=== PATIENT | male | born 1940 | race Caucasian/White ===

== ENCOUNTER 2023-04-21 07:45 | Observation (INO) ==
--- OUTSIDE RECORDS SUMMARY | 2023-04-21 07:52 | External Medical Summary | Continuity of Care Document ---
Author Name Unknown Organization [facility] Address [address] [place] [address] Phone [phone] Social History Type Date Description Comments Sex Unknown Results Test Acquired Date Facility Test Result H/L Range [place] BMP 04/14/2023 [facility] [address] [place], [place] [id number] [phone] Glucose 194 mg/dL High 70-110 1 BUN 34 mg/dL High 6-25 Creatinine 2.3 mg/dL High 0.7-1.3 Sodium 143 mEq/L 135-145 Potassium 4.8 mEq/L 3.5-5.0 Chloride 111 mEq/L High 95-107 Co-2 24 mEq/L 24-31 Calcium 8.3 mg/dL Low 8.5-10.6 GFR 29 ML/MIN/1.73SQM Low >60 1 Erik Pyle [facility] [address] [place] [address] [facility] [phone] Phone Procedures Date Code Description Status 04/14/2023 84062 Venipuncture Routine Complet ed Medical Devices Description No Information Available Encounters Description No Information Available Assessments Date Code Description Provider 04/14/2023 Z01.818 Encounter for other preproce dural examination Lab - [place] Plan of Treatment No Information Available Functional Status Description No Information Available Mental Status Description No Information Available Referrals Description No Information Available
--- OUTSIDE RECORDS SUMMARY | 2023-04-21 07:52 | External Medical Summary | Summary of Care ---
Author Name Unknown Organization [facility] Address [address] [place] [address] Phone [phone] Care Team Providers Care Supervisor Asbestos Removal Name Role Phone Brian England DO, David Vincent Primary Care Provid er Reason for Visit * Reason Comments Acute Pt is here for c/o b ilat ear songs playing in ear and L eye problems x couple wks Encounter Details Date Type Department Care Team (Late st Contact Info) Description 04/18/2023 12:20 PM EST Office Visit [facility] [address] [place] [address] [place] CRNP [address] [place] [id number] Abnormal mini-mental status exam*; Risk and functional assessment Allergies Active Allergy Reactions Criticality Noted Date Comments Hydromorphone Hcl Nausea/vomiting,Othe r (Please comment) 06/06/2015 Excessive sweating Ibuprofen 09/07/2007 Nausea, headache Lisinopril 07/05/2005 COUGH documented as of this encounter (statuses as of 04/18/2023) Medications Medication Sig Dispensed Refills Start Date End Date Status ONETOUCH DELICA LANCETS 33G MISC To use with glucometer up to four times a day DX: E11.9 100 Each 11 9 Active Creon 6000 UNIT Oral Capsule Delayed Release Particles (Pancrelipase ([id number]))Ind ications:Pancreatit is, chronic (HCC) TAKE ONE CAPSULE BY MOUTH THREE TIMES DAILY WITH MEALS 270 Cap 1 1 Active OneTouch Verio In Vitro Strip (Glucose Blood)Indications:T ype 2 diabetes mellitus with hemoglobin A1c goal of less than 8.0% (HCC) Use to check blood sugar three times daily as needed. E11.9 100 Strip 3 1 Active ReliOn Pen Aiken 31G X 6 MM (Insulin Pen Needle) Use with insulin pens three times daily. (Patient gets insulin pens through patient assistance program but is not supplied with pen needles. Please dispense) 100 Each 3 1 Active BD Pen Needle Keke 2nd Gen 32G X 4 MM 0 1 Active Triamcinolone Acetonide 0.1 % External Cream (Aristocort) Apply topically to affected area 2 times a day . To affected area. 60 g 5 2 Active Basaglar KwikPen 100 UNIT/ML Subcutaneous Solution Pen-injector (Insulin Glargine) INJECT 4 UNITS SUBCUTANEOUSLY ONCE DAILY AT NIGHT 15 mL 1 2 Active Multi Vitamin Daily Oral Tablet Take by mouth . 0 Active Pravastatin Sodium 40 MG Oral Tablet (Pravachol) TAKE 1 TABLET BY MOUTH DAILY WITH EVENING MEAL OR AT BEDTIME 90 Tablet 3 3 Active Dexcom G4 [place] Rcv/Share Device Use as directed. 0 Ac tive Losartan Potassium 25 MG Oral Tablet (Cozaar) TAKE 1 TABLET BY MOUTH EVERY DAY 90 Tablet 1 3 Active Allopurinol 100 MG Oral Tablet (Zyloprim)Indicatio ns:Idiopathic chronic gout without tophus, unspecified site TAKE 2 TABLETS BY MOUTH IN THE MORNING 180 Tablet 1 3 Active Finasteride 5 MG Oral Tablet (Proscar)Indication s:BPH with obstruction/lower urinary tract symptoms TAKE 1 TABLET BY MOUTH EVERY DAY IN THE MORNING 90 Tablet 1 3 Active Sodium Bicarbonate 650 MG Oral Tablet TAKE 1 TABLET BY MOUTH EVERY DAY IN THE MORNING AND AT BEDTIME 180 Tablet 3 3 Active Gabapentin 100 MG Oral Capsule (Neurontin)Indicati ons:Diabetic polyneuropathy associated with type 2 diabetes mellitus (HCC) Take 1 Capsule by mouth 3 times a day as needed for Pain (leg pain). 270 Capsule 3 3 Active NovoLOG FlexPen 100 UNIT/ML Subcutaneous Solution Pen-injector (insulin aspart)Indications: Type 2 diabetes mellitus with hemoglobin A1c goal of less than 8.0% (HCC) Inject 15 units with breakfast, 5 units with evening meal 1 Each 5 3 Active Famotidine 10 MG Oral Tablet (Pepcid)Indications :Heartburn Take 1 Tablet by mouth every evening. For heartburn 30 Tablet 0 3 Active Levothyroxine Sodium 50 MCG Oral Tablet (Levoxyl)Indication s:Hypothyroidism, unspecified type (at least 30 min prior to breakfast or other meds) 90 Tablet 3 3 Active Benzonatate 100 MG Oral CapsuleIndications: Acute cough Take 1 Capsule by mouth 3 times a day as needed for Cough. 30 Capsule 1 3 Active Ventolin HFA 108 (90 Base) MCG/ACT Inhalation Aerosol SolutionIndications :Wheezing Inhale 2 Puffs by mouth every 4 hours as needed for Shortness of Breath or Wheezing. 18 g 0 3 Active Clopidogrel Bisulfate 75 MG Oral Tablet (pLAVix) TAKE 1 TABLET BY MOUTH EVERY DAY IN THE MORNING 30 Tablet 3 3 Active Multivitamin Adult Oral Tablet Chewable 1 Tablet. 0 3 04/18/20 23 Discontinu ed(Patient preference /discontin uation) documented as of this encounter (statuses as of 04/18/2023) Active Problems Problem Noted Date Diagnosed Date Bilateral pleural effusion 04/08/2023 Syncope 02/06/2023 Hypoglycemia 02/04/2023 TIA (transient ischemic attack) 08/29/2022 Diabetic retinopathy of both eyes associated with type 2 diabetes mellitus 01/17/2021 Exocrine pancreatic insufficiency 11/15/2020 Diabetic polyneuropathy asso ciated with type 2 diabetes mellitus 08/11/2020 Type 2 diabetes mellitus wit h chronic kidney disease and hypertension 02/07/2020 Vitamin D deficiency 02/07/2020 Hypothyroidism 02/07/2020 Idiopathic chronic gout without tophus 0 Kidney disease, chronic, stage III (GFR 30-59 ml /min) 06/15/2019 Overview: Per CKD protocol History of TIA (transient ischemic attack) 06/03 Thrombocytopenia 03/23/2018 Type 2 diabetes mellitus wit h stage 3 chronic kidney disease, with long-term current use of insulin 03/16/2018 History of renal stone 11/18/2017 Overview: RIGHT URETERAL COLIC SEPTEMBER 2017; LEFT URETERAL COLIC IN YEARS PAST--STONES PASSED SPONTANEOUSLY--INITIAL STONE COLLECTED, COMPOSITION, ? Dyslipidemia, goal LDL below 100 03/03/2017 HTN, goal below 130/80 04/24/2015 Type 2 diabetes mellitus wit h hemoglobin A1c goal of less than 8.0% 09/06/2014 Overview: ICD-10 update of inactive term Anemia of chronic disease 01/06/2014 Gout 02/16/2009 Overview: ICD-9 Code Update Other chronic pancreatitis 10/25/2008 Overview: Followed by Dr. Thompson ADVANCE DIRECTIVE INFORMATION 12/21/2004 Overview: No, Advance Directive brochure given to patient. documented as of this encounter (statuses as of 04/18/2023) Resolved Problems Problem Noted Date Diagnosed Date Resolved Date Diabetic retinopathy of both eyes 01/15/2019 06/22/2019 Benign hypertension with chr onic kidney disease, stage III 03/23/2018 02/02/2019 DM type 2 causing eye disease 11/23/2015 07/07/2017 HTN, goal below 150/90 01/10/201504/24 KIDNEY DISEASE, CHRONIC, STA GE III (GFR 30-59 ML/MIN) 09/23/2011 06/18/2018 Overview: Per CKD protocol #1 Diabetic polyneuropathy 09/12/2010 03/0 09/2017 Overview: ICD-10 update of inactive term Chronic pancreatitis 04/30/2010 010 FATTY INFILTRATION LIVER 04/30/2010 Headache 03/20/2010 10/30/2016 Overview: ICD-10 update of inactive term DM type 2 causing neurological disease 07/13/2009 07/07/2017 HTN, goal below 130/80 03/28/200901/06 Overview: Modified per HTN protocol #16. DM TYPE 2 CAUSING RENAL DZ 03/02/2009 0 07/07/2017 Overview: Per Diabetes Taxonomy. Added per DM w/ renal complications protocol #4 Type 2 diabetes mellitus wit h hemoglobin A1c goal of less than 7.0% 03/02/2009 09/06/2014 Overview: Per Diabetes Taxonomy. ICD-10 update of inactive term Special screening for malign ant neoplasms, colon 10/14/2008 10/30/2016 Overview: Colonoscopy done on 06/10/[address] Thompson. Reported grade 1 internal hemorrhoids with recommended f/u in 10 yrs. DIAB RENAL MANIF ADULT 11/25/200703/02 Overview: Per Diabetes Taxonomy. Added per DM w/ renal complications protocol #4 Dermatitis 03/05/2005 03/20/2018 Presbyopia 08/10/2002 10/30/2016 Type 2 diabetes mellitus wit h hemoglobin A1c goal of less than 7.0% 03/02/2009 Overview: Per Diabetes Taxonomy. 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 documented as of this encounter (statuses as of 04/18/2023) Immunizations Name Administration Dates Next Due COVID-19, mRNA, LNP-s, PF, B ooster, 100mcg/0.5mg (Moderna) 05/16/2021 Pneumococcal Conjugate Vacc, 13 Valent (Prevnar) 05/22/2015 Seasonal Influenza, PF, 6 M & above, IM , (FluLaval or Fluzone) 02/07/2020,02/02/2019,03/16/2018,2016 Seasonal Influenza, Quadriva lent Hd (Fluzone Hd) 02/12/2023,02/12/2022,02/09/2021 Seasonal Influenza, Quadriva lent, No Preserve, IM 03/02/2016 Seasonal Influenza, Split, I IV3, With Preserve, Inj 01/10/2015,02/05/2014,01/16/2013,2011,01/25/2011,01/23/2010,02/07/2009,1 ,02/12/2007,03/03/2006 TDAP (age 10 and older)(Boostrix) 04/02/2017 Zoster Vaccine Recombinant (Shingrix) 10/29/2019 ,07/02/2019 documented as of this encounter Social History Tobacco Use Types Packs/Day Years Used Date Smoking Tobacco: Former Cigarettes 0.5 3 Q uit: 11/28/1964 Smokeless Tobacco: Former Tobacco Cessation:Counseling Given: Not Answered Alcohol Use Standard Drinks/Week Comments No 0 (1 standard drink = 0.6 oz pur e alcohol) PHQ-2 Answer Date Recorded PHQ Adult Total Score 0 10/01/2022 Hunger Vital Sign Answer Date Recorded Within the past 12 months, y ou worried that your food would run out before you got the money to buy more. Never true 11/05/19 23 Within the past 12 months, t he food you bought just didn't last and you didn't have money to get more. Never true 11/04/2022 Sex and Gender Information Value Date Recorded Sex Assigned at Male 08/27/2018 9:53 AM EDT Gender Identity Male 08/27/2018 9:53 AM EDT Sexual Orientation Straight 08/27/2018 9: 53 AM EDT Job Start Date Occupation Industry Not on file Not on file Not on file documented as of this encounter Last Filed Vital Signs Vital Sign Reading Time Taken Comments Blood Pressure 128/62 04/18/2023 12:25 PM EST Pulse 81 04/18/2023 12:25 PM EST Temperature 36.2 C (97.1 F) 04/18/2023 12:[address] Respiratory Rate 18 04/18/2023 12:25 PM EST Oxygen Saturation 98% 04/18/2023 12:25 PM EST Inhaled Oxygen Concentration - - Weight 71 kg (156 lb 8 oz) 04/18/2023 12:[address] Height - - Body Mass Index 22.46 04/10/2023 11:01 AM EST documented in this encounter Functional Status Functional Status Response Date of Assess ment Are you deaf or do you have serious difficulty h earing? Yes 08/29/2022 Are you blind or do you have serious difficulty seeing, even when wearing glasses? No 08/29/2022 Do you have serious difficul ty walking or climbing stairs? (5 years old or older) Yes 08/29/2022 Do you have difficulty dress ing or bathing? (5 years old or older) Yes 08/29/2022 Because of a physical, menta l, or emotional condition, do you have difficulty doing errands alone such as visiting a doctor s office or shopping? (15 years old or older) No 08/30/19 Cognitive Status Response Date of Assessm ent Because of a physical, menta l, or emotional condition, do you have serious difficulty concentrating, remembering, or making decisions? (5 years old or older) No 08/29/2022 documented as of this encounter Patient Instructions * Patient Instructions* Hector Mayo LPN - 04/18/2023 12:23 PM EST Patient Instructions - Fall Prevention (This education is for all patients over 65 regardless of symptoms) Remember to take your current medications as prescribed. In order to prevent falls, you are encouraged to: Exercise Utilize assistive/adaptive devices Avoid multifocal lenses when walking Avoid hazards in home Maintain a regular toileting schedule Any questions please contact our office. Preventing Falls in the Home (This education is for all patients over 65 regardless of symptoms) As you get older, falls are more likely. Thats because your reaction time slows. Your muscles and joints may also get stiffer, making them less flexible. Illness, medications, and vision changes can also affect your balance. A fall could leave you unable to live on your own. To make your home safer, follow these tips: Floors Put nonskid pads under area rugs Remove throw rugs Replace worn floor coverings Tack carpets firmly to each step on carpeted stairs. Put nonskid strips on the edges of uncarpeted stairs Keep floors and stairs free of clutter and cords Arrange furniture so there are clear pathways Clean up any spills right away Bathrooms Install grab bars in the tub or shower Apply nonskid strips or put a nonskid rubber mat in the tub or shower Sit on a bath chair to bathe Use bathmats with nonskid backing Lighting Keep a flashlight in each room Put a nightlight along the pathway between the bedroom and the bathroom [employer] Patient Education Copyright 2008 - 2010 [employer] except where otherwise noted Preventing Falls: Exercises to Improve Balance, Flexibility, Strength, and Staying Power (This education is for all patients over 65 regardless of symptoms) Certain types of exercises may help make you less likely to fall. Try the ones below. Or do other exercises that your healthcare provider suggests. Depending on your health, you may need to start slowly. Dont let that stop you. Even small amounts of exercise can help you. Be sure to talk to yourhealthcare provider before starting any exercise program. Improve Balance Many types of exercise can help improve balance. Cl chi and yoga are good examples. Heres another one to try. You can do it anytime and almost anywhere. Stand next to a counter or solid support. Push yourself up onto your tiptoes. Hold for 5 seconds. If you start to lose your balance, hold on to the counter. Rest and repeat 5 times. Work up to holding for 20 to 30 seconds, if you can. Increase Flexibility Being more flexible makes it easier for you to move around safely. Try exercises like the seated hamstring stretch. Sit in a chair and put one foot on a stool. Straighten your leg and reach with both hands down either side of your leg. Reach as far down your leg as you can. Hold for about 20 seconds. Go back to the starting position. Then repeat 5 times. Switch legs. Build Strength Resistance exercises help build strength. You can do them without equipment. Or you can use weights, elastic bands, or special machines. One such exercise is called the biceps curl. You can hold a 1 pound weight or even a can of soup. Do this exercise at least 3 times a week. Strive for everyday. Sit up straight in a chair. Keep your elbow close to your body and your wrist straight. Bend your arm, moving your hand up to your shoulder. Then slowly lower your arm. Repeat 5 times. Switch to the other arm. Build Your Staying Power Aerobic exercises make your heart and lungs stronger so you can keep moving longer. Walking and swimming are two of the best types of exercises you can do. Using a stationary bike is great, too. Find an aerobic exercise that you enjoy. Start slowly and build up. Even 5 minutes is helpful. Aimfor a goal of 30 minutes, at least 3 times a week. You dont have to do 30 minutes in one session. Break it up and walk a little throughout the day. More Helpful Tips Start easy. Slowly work up to doing more. Talk with your healthcare provider about the best exercises for you. Call senior centers or health clubs about exercise programs. If needed, have a family member watch you walk every so often to check your stability. Exercise with a friend. Choose an activity you both enjoy. Try exercises that you can do anytime, anywhere. Here are two examples. Have someone with you when you first try these: Practice walking by placing one foot right in front of the other. Stand up and sit down 10 times. Repeat this throughout the day. [employer] Patient Education Copyright 2009 - 2010 [employer] except where otherwise noted. Preventing Falls: Moving Safely Using a Cane or Walker (This education is for all patients over 65 regardless of symptoms) Keep the cane away from your feet so you dont trip. A walking aid, such as a cane or walker, can help you stay more independent and avoid falls. Remember to keep your walking aid within easy reach when youre in a chair or in bed. And learn how to use it safely so you dont injure yourself. Using a Cane If you have a stronger side, hold the cane on that side. Get your balance. Move the cane and your weaker leg forward. Support your weight on both the cane and your weaker side. Step with your stronger leg. Start again from step 1. If youre using a folding walker, be sure you know how to lock it open. Check that its locked open before each use. Using a Walker Roll the walker (or lift it, if youre using one without wheels) forward about 12 inches. Step forward with your weaker leg first. Use the walker to help keep your balance. Bring your other foot forward to the center of the walker. Start again from step 1. Helpful Tips Check with your healthcare provider about the right walking aid to use. Ask about a walker with a seat attached. Check the tips of your cane or walker to make sure they have nonskid covers. Move slowly from room to room. Dont lua. Sit down to get dressed. Use a bhavna pack or backpack to keep your hands free. Get help for jobs that mean climbing, even on a stepstool. [employer] Patient Education Copyright 2008 - 2010 [employer] except where otherwise noted. Treating Urinary Incontinence in Men (This education is for all patients over 65 regardless of symptoms) You can't always control the release of urine. You may leak urine. Or you may not be able to hold your urine until you can get to a bathroom. This is called urinary incontinence. The problem can be managed. Talk to your doctor about your treatment options. Taking Medications Prescription medications may help you. They may: Help the sphincter to work better. (This is the muscle that closes to keep urine from leaking out of the bladder.) Help stop the bladder from chelsie too often to push urine out. Help the bladder muscles contract with more force. Help relax the sphincter muscle and allow urine to flow more freely. Making Changes to Your Routine Certain changes in your daily routine may help. These include: Avoiding caffeine and alcohol. Using timed voiding. This is following a schedule for drinking fluids and urinating. Doing Kegel exercises daily. These exercises involve tightening the muscles in your sphincter and around your bladder to help strengthen them. Your doctor can explain how to do them. Using a Catheter A catheter is a narrow tube that is inserted through the urethra into the bladder. It drains urine.A condom catheter covers the penis. It channels urine into a collection bag. It is worn most of thetime. Intermittent catheterization means inserting a catheter to drain the bladder, then removing it. This is done on a regular schedule. Having Surgery If other options don't work, surgery may be recommended. If surgery is an option, your healthcare provider can discuss it with you and explain its risks and benefits. Healing After Prostate Surgery Surgery on the prostate gland can cause incontinence. Most often, the incontinence is only for a short time. It clears up when healing is complete. Very rarely, prostate surgery can result in permanent incontinence. documented in this encounter Progress Notes * [place] CRNP - 04/18/2023 12:33 PM EST Images from the original note were not included. History of Present Illness Chief Complaint Patient presents with Acute Pt is here for c/o bilat ear songs playing in ear and L eye problems x couple wks Brief Clinical History Mr. Lee is an 82 year old man last seen in Family Medicine today (04-18-23). He has h/o chronic diabetic complication, chronic pancreatitis, CKD stage 3, Diabetic polyneuropathy associated with type 2 diabetes mellitus (HCC), Diabetic retinopathy of both eyes associated with type 2 diabetes mellitus (HCC), hematological disorder, Kidney disease, chronic, stage III (GFR 30-59 ml/min) (HCC), Other chronic pancreatitis (HCC), Thrombocytopenia (HCC), and Type 2 diabetes mellitus with stage 3 chronic kidney disease, with long-term current use of insulin (HCC). Patient presents today with his and son. Pt states about 2 weeks ago started hearing someone singing. States heard the words and the music. This lasted for about 4 days. It was only in left ear. No radio was playing. Per family, no other audio was playing. Pt was hearing constantly. States it quit this morning. Pt is not hearing it now. The story changed somewhat while interviewing the patient. Difficult to assess exactly how long thesymptoms were ongoing. Patient does state does not hear anything at this time. Patient does appear somewhat confused upon examination. Occasionally laughs at random times. Is disoriented to time. Oriented to person and place. No hx of mental health disorders. No ringing our buzzing in ears. No ear pain. No headaches or dizziness. There was concern for potential new onset of dementia. Mini-mental state examination done with patient. See below. Reviewed last labs Latest Reference Range & Units 04/10/23 12:47 04/14/23 17:17 Sodium 135 - 146 mmol/L 142 SODIUM-OUTSIDE LAB 135 - 145 MEQ/L 143 Potassium 3.5 - 5.1 mmol/L 4.8 POTASSIUM-OUTSIDE LAB 3.5 - 5.0 MEQ/L 4.8 Chloride 98 - 107 mmol/L 110 (H) CHLORIDE-OUTSIDE LAB 95 - 107 MEQ/L 111 (H) CO2 22 - 32 mmol/L 24 BUN 6 - 20 mg/dL 29 (H) BUN-OUTSIDE LAB 6 - 25 MG/DL 34 (H) Creatinine 0.6 - 1.2 mg/dL 2.1 (H) CREATININE-OUTSIDE LAB 0.7 - 1.3 MG/DL 2.3 (H) Estimated Glomerular Filtration Rate >=60 mL/min 31 (L) EGFR-OUTSIDE LAB >60 ML/MIN/1.73 SQM 29 (L) Anion Gap 7 - 15 mmol/L 8 Glucose 70 - 120 mg/dL 126 (H) GLUCOSE-OUTSIDE LAB 70 - 110 MG/DL 194 (H) Calcium 8.4 - 10.2 mg/dL 8.8 CALCIUM-OUTSIDE LAB 8.5 - 10.6 MG/DL 8.3 (L) CBC Rpt ! WBC 4.00 - 10.80 K/uL 8.29 HGB 14.0 - 16.8 g/dL 12.4 (L) HCT 40.0 - 48.4 % 35.4 (L) MCV 82.0 - 99.5 fL 101.1 PLT 140 - 400 K/uL 155 Review of Systems Constitutional: Negative. HENT: Negative. Eyes: Negative. Respiratory: Negative. Cardiovascular: Negative. Gastrointestinal: Negative. Endocrine: Negative. Genitourinary: Negative. Musculoskeletal: Negative. Skin: Negative. Neurological: Negative. Psychiatric/Behavioral: Positive for confusion and decreased concentration. Auditory hallucination Physical Exam BP 128/62 | Pulse 81 | Temp 36.2 C (97.1 F) (Tympanic) | Resp 18 | Wt 71 kg (156 lb 8 oz) | SpO2 98% | BMI 22.46 kg/m | BSA 1.87 m Physical Exam Vitals reviewed. Constitutional: Appearance: Normal appearance. He is normal weight. HENT: Head: Normocephalic. Right Ear: Tympanic membrane, ear canal and external ear normal. Left Ear: Tympanic membrane, ear canal and external ear normal. Nose: Nose normal. Mouth/Throat: Pharynx: Oropharynx is clear. Eyes: Extraocular Movements: Extraocular movements intact. Conjunctiva/sclera: Conjunctivae normal. Pupils: Pupils are equal, round, and reactive to light. Cardiovascular: Rate and Rhythm: Normal rate and regular rhythm. Pulses: Normal pulses. Heart sounds: Normal heart sounds. Pulmonary: Effort: Pulmonary effort is normal. Breath sounds: Normal breath sounds. Abdominal: General: Bowel sounds are normal. Palpations: Abdomen is soft. Musculoskeletal: General: Normal range of motion. Skin: General: Skin is warm and dry. Capillary Refill: Capillary refill takes less than 2 seconds. Neurological: Mental Status: He is alert. Mental status is at baseline. He is disoriented. Psychiatric: Mood and Affect: Mood normal. Cognition and Memory: Cognition is impaired. Assessment and Plan (F99) Abnormal mini-mental status exam (primary encounter diagnosis) Plan: Did reach out to ask a doc for more information on next steps. The patient appeared healthy upon physical examination. Do not feel there is any need to do any further lab work or imaging at this time. Did step out of room and talk with family privately about his mini-mental state examination. Discussed with them that this could potentially be early onset dementia. However assured the patient's family that it is uncertain at this time. I also discussed with the patient about the possibility of early onset dementia. However the patient seemed to have difficulty comprehending what I was saying. (Z13.9) Risk and functional assessment Plan: Information given by nurse. Wrap-Up Pt is to follow up with his appointments in the future as scheduled. Pt or family members are to notify us of any concerning or worsening symptoms. Pt and family members expresses understanding and satisfaction with plan. Time: I spent a total of 40-54 minutes (exact time 45 mins) on the date of service in preparation, delivery, and documentation of the care provided to Kd Lee excluding any time spent in the performance of separately billed services. AIMEE Rainey documented in this encounter Nursing Notes * Hector Mayo LPN - 04/18/2023 12:22 PM EST Chief Complaint Patient presents with Acute Pt is here for c/o bilat ear songs playing in ear and L eye problems x couple wks documented in this encounter Plan of Treatment Upcoming Encounters Date Type Department Care Team (Late st Contact Info) Description 07/17/2023 2:00 PM EDT Office Visit Cardiology [place] [address] [address] Radha London CRNP [address] [place] [phone] 09/09/2023 3:00 PM EDT Office Visit Nephrology, [address] [address] Kaushik Landaverde MD [address] [place] [address] 10/03/2023 3:20 PM EDT [facility] Visit [facility] [address] [place] [address] Farhat Torres Jr. [address] [place] [address] 11/19/2023 1:30 PM EDT Office Visit Cardiology [address] [address] Radha London CRNP [address] [place] [phone] 11/19/2023 3:00 PM EDT Office Visit Pharmacy, [address] [place] [address] Pharmacist2, [address] [address] 03/02/2024 2:00 PM EDT Appointment Radiology, [address] [address] 03/08/2024 1:40 PM EST Telemedicine Pulmonary Medicine [facility] [address] [place] [phone] Nakul Michelle MD [address] [place] [address] Health Maintenance Due Date Last Done Comments Hepatitis B (1 of 3 - Risk 3-dose series) 2000 HOME BP CUFF VALIDATION YEARLY 07/16/2018 07/16/2017 COVID-19 Vaccine ( - season) 2023 05/16/2021 Albumin/Creatinine Ratio 03/21/2023 022, 09/18/2021, 02/02/2019, Additional history exists Diabetic Foot Exam 03/26/2023 03/26/2022, 1 , 02/07/2020, Additional history exists HbA1c 07/23/2023 01/22/2023, 08/0 08/2022, 09/20/2022, Additional history exists CKD PHOS USE SMARTSET 31386 08/31/2023/2 12/2022, 08/29/2022, 09/18/2021, Additional history exists Depression Screening 10/02/2023 10/01/2022 GFR 10/14/2023 04/14/2023, 12/0 11/2022, 02/04/2023, Additional history exists Diabetic Eye Exam 12/10/2023 12/09/2022, , 11/21/2022, Additional history exists TSH 01/23/2024 01/22/2023, 08/0 08/2022, 09/20/2022, Additional history exists CKD HGB USE SMARTSET 15906 04/10/202404/10, 02/04/2023, 01/22/2023, Additional history exists DTaP,Tdap,and Td Vaccines (2 - Td or Tdap) 04/02/2027 04/02/2017, 04/12/1998 Pneumococcal Vaccine: 65+ Years Completed 05/22/2015, 05/14/2005 Zoster Vaccines Completed 10/29/2019, 07/02/2019 Influenza Vaccine (FLU shot) Completed 03/2023, 02/12/2022, 02/09/2021, Additional history exists GARDASIL-HPV IMMUNIZATION SERIES Aged Out No longer eligible based on patient's age to complete this topic MENINGOCOCCAL (MENACTRA/MENVEO) Aged Out No longer eligible based on patient's age to complete this topic documented as of this encounter Medical Devices Not on filedocumented as of this encounter Visit Diagnoses Diagnosis Abnormal mini-mental status exam- Primary Altered mental status Risk and functional assessment Screening for unspecified condition documented in this encounter Advance Directives Latest Code Status on File Code Status Date Activated Date Inactivated Comments Full Code 08/29/2022 9:50 PM 08/30/2022 8:44 PM This order reflects the patients wishes and were consensually agreed upon. Question Answer Comments Discussion of Advance Directives occurred with: Patient Care Teams Supervisor Asbestos Removal Relationship Specialty Start Date End Date Farhat Torres Jr., DO [address] [place] [address] PCP - General Family Medicine 04/24/21 documented as of this encounter"
--- OUTSIDE RECORDS SUMMARY | 2023-04-21 07:52 | External Medical Summary | Continuity of Care Document ---
Author Name Unknown Organization [facility] Address [address] [place] [address] Phone [phone] Social History Type Date Description Comments Sex Unknown Results Test Acquired Date Facility Test Result H/L Range N ote BMP 04/14/2023 [facility] [address] [place], [place] [id number] [phone] Glucose 194 mg/dL High 70-110 1 BUN 34 mg/dL High 6-25 Creatinine 2.3 mg/dL High 0.7-1.3 Sodium 143 mEq/L 135-145 Potassium 4.8 mEq/L 3.5-5.0 Chloride 111 mEq/L High 95-107 Co-2 24 mEq/L 24-31 Calcium 8.3 mg/dL Low 8.5-10.6 GFR 29 ML/MIN/1.73SQM Low >60 1 Erik Pyle [facility] [address] [place] [address] [facility] [address] Phone Procedures Date Code Description Status 04/14/2023 65436 Venipuncture Routine Complet ed Medical Devices Description No Information Available Encounters Description No Information Available Assessments Date Code Description Provider 04/14/2023 Z01.818 Encounter for other preproce dural examination Flakito Saleem, DO 04/14/2023 Z01.818 Encounter for other preproce dural examination Lab - [place] Plan of Treatment No Information Available Functional Status Description No Information Available Mental Status Description No Information Available Referrals Description No Information Available
--- OUTSIDE RECORDS SUMMARY | 2023-04-21 07:52 | External Medical Summary | Summary of Care ---
Author Name Unknown Organization [facility] Address [address] [place] [address] Phone [phone] Care Team Providers Care Instructional Supervisor Name Role Phone Brian England DO, David Vincent Primary Care Provid er Reason for Referral * Evaluate & Treat - Unlimited Visits (Within 10 days (routine)) - Authorized Specialty Diagnoses / Procedures Referred By Shine do Referred To Contact Neurology Diagnoses Abnormal mini-mental status exam Jarred Zaragoza CRNP [address] [place] [address] Referral ID Status Reason Start Date Expiration Date Visits Requested Visits Authorized [id number] Authorized Specialty Services Required [phone] Question Answer Referral Priority Within 10 days (routine) Where should this appointment be scheduled? [facility] This patient already has care established with Neurology. Do not place this order. Please use Ask A Doc to expedite care. Acknowledge CAD NEUROLOGY REFERRAL QUESTIONS Memory/Cognition Comments Neurophthalmology as well. Reason for Visit * Reason Comments Acute Pt is here for c/o b ilat ear songs playing in ear and L eye problems x couple wks Encounter Details Date Type Department Care Team (Late st Contact Info) Description 04/18/2023 12:20 PM EST Office Visit [facility] [address] [place] [address] Jarred Zaragoza CRNP [address] [place] [address] Abnormal mini-mental status exam*; Risk and [...] UNIT Oral Capsule Delayed Release Particles (Pancrelipase (Swn-Fyfo-Vzlr))Ind ications:Pancreatit is, chronic (HCC) TAKE ONE CAPSULE BY MOUTH THREE TIMES DAILY WITH MEALS 270 Cap 1 1 Active Long TailTouch Verio In Vitro Strip (Glucose Blood)Indications:T ype 2 diabetes mellitus with hemoglobin A1c goal of less than 8.0% (HCC) Use to check blood sugar three times daily as needed. E11.9 100 Strip 3 1 Active ReliOn Pen [place] 31G X 6 MM (Insulin Pen Needle) [...] 90 Tablet 3 3 Active Dexcom G4 [place] Rcv/Share Device Use as directed. 0 Ac [...] Per CKD protocol #1 Diabetic polyneuropathy 09/12/2010 0309/2017 Overview: ICD-10 update of inactive term Chronic [...] Pneumococcal Conjugate Vacc, 13 Valent (Prevnar) 05/22/2015 Pneumococcal Polysaccharide PPV23 (Pneumovax) 05/14/2005 Seasonal Influenza, PF, 6 M & above, IM , (FluLaval or Fluzone) 02/07/2020,02/02/2019,03/16/2018,03/03 Seasonal Influenza, Quadriva lent Hd (Fluzone Hd) 02/12/2023,02/12/2022,02/09/2021 Seasonal Influenza, Quadriva lent, No Preserve, IM 03/02/2016 Seasonal Influenza, Split, I IV3, With Preserve, Inj 01/10/2015,02/05/2014,01/16/2013,01/29,01/25/2011,01/23/2010,02/07/2009 ,02/25/2008,02/12/2007,03/03/2006,04/05,03/16/2003,03/25/2002, 0,02/07/1999,03/01/1998,02/24/1995 TD - Tetanus/Diptheria (ADULT) 04/12/1998 TDAP (age 10 and older)(Boostrix) 04/02/2017 Zoster [...] money to buy more. Never true 11/05/19 Within the past 12 months, t he [...] encounter Patient Instructions * Patient Instructions* Hector MayoRACHAEL - 04/18/2023 12:23 PM EST Patient Instructions [...] that mean climbing, even on a stepstool. Delta Patient Education Copyright 2008 - 2010 [...] documented in this encounter Progress Notes * Jarred Zaragoza CRNP - 04/18/2023 12:33 PM EST [...] x couple wks documented in this encounter Miscellaneous Notes * Addendum Note - Jarred Zaragoza CRNP - 04/18/2023 4:31 PM ESTAddended by: JARRED ZARAGOZA on: 04/18/2023 04:31 PM Modules accepted: Orders documented in this encounter Plan of Treatment Upcoming Encounters Date Type Department Care Team (Late st Contact Info) Description 07/17/2023 2:00 PM EDT Office Visit Cardiology [facility] [address] [address] Radha London CRNP [address] [place] [address] [place] [phone] 09/09/2023 3:00 PM EDT Office Visit Nephrology, [address] [place] [address] Kaushik Landaverde MD [address] [place], [place] [address] [address] 10/03/2023 3:20 PM EDT Office Visit [facility] [address] [place] [address] Farhat Torres Jr., DO [address] [place] [address] 11/19/2023 1:30 PM EDT Office Visit Cardiology [facility] [address] [address] Radha London CRNP [address] [place] [phone] 11/19/2023 3:00 PM EDT Office Visit Pharmacy, [place] [address] [facility] [place] [address] Pharmacist2, [facility] [place] [address] 03/02/2024 2:00 PM EDT Appointment Radiology, [facility] [address] [place] [address] 03/08/2024 1:40 PM EST Telemedicine Pulmonary Medicine [facility] [address] [place] [phone] Nakul Michelle MD [address] [place] [facility] [address] Scheduled Referrals Name Type Priority Associated Diagnoses Orde r Schedule NEUROLOGY REFERRAL OP Referral Within 10 days (routine) Abnormal mini-mental status exam Ordered: 04/18/2023 Health Maintenance Due Date Last Done Comments Hepatitis B (1 of 3 - Risk 3-dose series) 2000 HOME BP CUFF VALIDATION YEARLY 07/16/2018 07/16/2017 COVID-19 Vaccine ( season) 2023 05/16/2021 Albumin/Creatinine Ratio 03/21/202303/21/2 022, 09/18/2021, 02/02/2019, Additional history exists Diabetic Foot Exam 03/26/2023 03/26/2022, 1 , 02/07/2020, Additional history exists HbA1c 07/23/2023 01/22/2023, 08/0 08/2022, 09/20/2022, Additional history exists CKD PHOS USE SMARTSET 66988 08/31/2023 04/2 12/2022, 08/29/2022, 09/18/2021, Additional history exists Depression Screening 10/02/2023 10/01/2022 GFR 10/14/2023 04/14/2023, 12/0 11/2022, 02/04/2023, Additional history exists Diabetic Eye Exam 12/10/2023 12/09/2022, , 11/21/2022, Additional history exists TSH 01/23/2024 01/22/2023, 08/0 08/2022, 09/20/2022, Additional history exists CKD HGB USE SMARTSET 23876 04/10/202404/10, 02/04/2023, 01/22/2023, Additional history exists DTaP,Tdap,and [...] Advance Directives occurred with: Patient Care Teams Instructional Supervisor Relationship Specialty Start Date End Date Farhat Torres Jr., DO [address] [place] [phone] PCP - General Family Medicine 04/24/21 documented as of this encounter"
--- OUTSIDE RECORDS SUMMARY | 2023-04-21 07:52 | External Medical Summary | Summary of Care ---
Author Name Unknown Organization [facility] Address [address] [place] [address] Phone [phone] Care Team Providers Care Property Assessment Monitor Name Role Phone Brian England DO, David Vincent Primary Care Provid er Reason for Referral * Evaluate & Treat - Unlimited Visits (Within 10 days (routine)) - Authorized Specialty Diagnoses / Procedures Referred By Shine do Referred To Contact Neurology Diagnoses Abnormal mini-mental status exam Jarred Zaragoza CRNP [address] [place] [address] Referral ID Status Reason Start Date Expiration Date Visits Requested Visits Authorized [id number] Authorized Specialty Services Required 3 [phone] [...] Description 04/18/2023 12:20 PM EST Office Visit [facility] [address] [place] [address] Jarred Zaragoza CRNP [address] [place] [address] Abnormal mini-mental status exam*; [...] UNIT Oral Capsule Delayed Release Particles (Pancrelipase (Fpd-Xsev-Ttnm))Ind ications:Pancreatit is, chronic (HCC) TAKE ONE CAPSULE BY MOUTH THREE TIMES DAILY WITH MEALS 270 Cap 1 1 Active BablicTouch Verio In Vitro Strip (Glucose Blood)Indications:T ype 2 diabetes mellitus with hemoglobin A1c goal of less than 8.0% (HCC) Use to check blood sugar three times daily as needed. E11.9 100 Strip 3 1 Active ReliOn Pen [place] 31G X 6 MM (Insulin Pen Needle) [...] 90 Tablet 3 3 Active Dexcom G4 [place] Rcv/Share Device Use as directed. 0 Ac [...] 07/17/2023 2:00 PM EDT Office Visit Cardiology [facility] [address] [address] Radha London CRNP [address] [place] [address] [place] [phone] 09/09/2023 3:00 PM EDT Office Visit Nephrology, [address] [place] [address] Kaushik Landaverde MD [address] [place], [place] [address] [address] 10/03/2023 3:20 PM EDT Office Visit [facility] [address] [place] [address] Farhat Torres Jr., DO [address] [place] [address] 11/19/2023 1:30 PM EDT Office Visit [facility] [address] [facility] [address] Radha London CRNP [address] [place] [phone] 11/19/2023 3:00 PM EDT Office Visit Pharmacy, [place] [address] [facility] [address] Pharmacist2, [facility] [address] [place] [address] 03/02/2024 2:00 PM EDT Appointment Radiology, [facility] [address] [place] [address] 03/08/2024 1:40 PM EST Telemedicine Pulmonary Medicine [facility] [address] [place] [phone] Nakul Michelle MD [address] [facility] [place] [address] Scheduled Referrals Name Type Priority Associated Diagnoses [...] Additional history exists CKD PHOS USE SMARTSET 52393 08/31/2023 04/2 12/2022, 08/29/2022, 09/18/2021, Additional history exists Depression Screening 10/02/2023 10/01/2022 GFR 10/14/2023 04/14/2023, 12/0 11/2022, 02/04/2023, Additional history exists Diabetic Eye Exam 12/10/2023 12/09/2022, , 11/21/2022, Additional history exists TSH 01/23/2024 01/22/2023, 08/0 08/2022, 09/20/2022, Additional history exists CKD HGB USE SMARTSET 81729 04/10/202404/10, 02/04/2023, 01/22/2023, Additional history exists DTaP,Tdap,and [...] Advance Directives occurred with: Patient Care Teams Property Assessment Monitor Relationship Specialty Start Date End Date Farhat Torres Jr., DO [address] [place] [phone] PCP - General Family Medicine 04/24/21 documented as of this encounter"
--- OUTSIDE RECORDS SUMMARY | 2023-04-21 07:52 | External Medical Summary | Summary of Care ---
Author Name Unknown Organization [facility] Address [address] [place] [address] Phone [phone] Care Team Providers Care Career Development Associate Name Role Phone Brian England DO, David Vincent Primary Care Provid er Reason for Visit * Reason Onset Date Comments Advice 04/14/2023 Encounter Details Date Type Department Care Team (Late st Contact Info) Description 04/14/2023 Telephone [facility] [address] [place] [address] Farhat Torres Jr., DO [address] [place] [address] Advice Allergies Active Allergy Reactions Criticality Noted Date Comments Hydromorphone Hcl Nausea/vomiting,Othe r (Please comment) 06/06/2015 Excessive sweating Ibuprofen 09/07/2007 Nausea, headache Lisinopril 07/05/2005 COUGH documented as of this encounter (statuses as of 04/16/2023) Medications Medication Sig Dispensed Refills Start Date End Date Status ONETOUCH DELICA LANCETS 33G MISC To use with glucometer up to four times a day DX: E11.9 100 Each 11 10/30/2018 Active Creon 6000 UNIT Oral Capsule Delayed Release Particles (Pancrelipase (Jmp-Kbxa-Iwce))Ind ications:Pancreatit is, chronic (HCC) TAKE ONE CAPSULE BY MOUTH THREE TIMES DAILY WITH MEALS 270 Cap 1 05/11/2020 Active OneTouch Verio In Vitro Strip (Glucose Blood)Indications:T ype 2 diabetes mellitus with hemoglobin A1c goal of less than 8.0% (HCC) Use to check blood sugar three times daily as needed. E11.9 100 Strip 3 02/19/2021 Active ReliOn Pen [place] 31G X 6 MM (Insulin Pen Needle) Use with insulin pens three times daily. (Patient gets insulin pens through patient assistance program but is not supplied with pen needles. Please dispense) 100 Each 3 03/30/2021 Active BD Pen Needle Keke 2nd Gen 32G X 4 MM 0 03/28/2021 Active Triamcinolone Acetonide 0.1 % External Cream (Aristocort) Apply topically to affected area 2 times a day . To affected area. 60 g 5 06/13/2021 Active Basaglar KwikPen 100 UNIT/ML Subcutaneous Solution Pen-injector (Insulin Glargine) INJECT 4 UNITS SUBCUTANEOUSLY ONCE DAILY AT NIGHT 15 mL 1 08/17/2021 Active Multi Vitamin Daily Oral Tablet Take by mouth . 0 Active Pravastatin Sodium 40 MG Oral Tablet (Pravachol) TAKE 1 TABLET BY MOUTH DAILY WITH EVENING MEAL OR AT BEDTIME 90 Tablet 3 06/03/2022 Active Dexcom G4 Velpen Rcv/Share Device Use as directed. 0 Ac tive Losartan Potassium 25 MG Oral Tablet (Cozaar) TAKE 1 TABLET BY MOUTH EVERY DAY 90 Tablet 1 10/23/2022 Active Allopurinol 100 MG Oral Tablet (Zyloprim)Indicatio ns:Idiopathic chronic gout without tophus, unspecified site TAKE 2 TABLETS BY MOUTH IN THE MORNING 180 Tablet 1 10/23/2022 Active Finasteride 5 MG Oral Tablet (Proscar)Indication s:BPH with obstruction/lower urinary tract symptoms TAKE 1 TABLET BY MOUTH EVERY DAY IN THE MORNING 90 Tablet 1 10/23/2022 Active Sodium Bicarbonate 650 MG Oral Tablet TAKE 1 TABLET BY MOUTH EVERY DAY IN THE MORNING AND AT BEDTIME 180 Tablet 3 10/24/2022 Active Gabapentin 100 MG Oral Capsule (Neurontin)Indicati ons:Diabetic polyneuropathy associated with type 2 diabetes mellitus (HCC) Take 1 Capsule by mouth 3 times a day as needed for Pain (leg pain). 270 Capsule 3 11/01/2022 Active NovoLOG FlexPen 100 UNIT/ML Subcutaneous Solution Pen-injector (insulin aspart)Indications: Type 2 diabetes mellitus with hemoglobin A1c goal of less than 8.0% ([facility]) Inject 15 units with breakfast, 5 units with evening meal 1 Each 5 11/04/2022 Active Famotidine 10 MG Oral Tablet (Pepcid)Indications :Heartburn Take 1 Tablet by mouth every evening. For heartburn 30 Tablet 0 12/13/2022 Active Levothyroxine Sodium 50 MCG Oral Tablet (Levoxyl)Indication s:Hypothyroidism, unspecified type (at least 30 min prior to breakfast or other meds) 90 Tablet 3 12/13/2022 Active Benzonatate 100 MG Oral CapsuleIndications: Acute cough Take 1 Capsule by mouth 3 times a day as needed for Cough. 30 Capsule 1 12/13/2022 Active Ventolin HFA 108 (90 Base) MCG/ACT Inhalation Aerosol SolutionIndications :Wheezing Inhale 2 Puffs by mouth every 4 hours as needed for Shortness of Breath or Wheezing. 18 g 0 12/13/2022 Active Clopidogrel Bisulfate 75 MG Oral Tablet (pLAVix) TAKE 1 TABLET BY MOUTH EVERY DAY IN THE MORNING 30 Tablet 3 01/10/2023 Active documented as of this encounter (statuses as of 04/16/2023) Active Problems Problem Noted Date Diagnosed Date Bilateral pleural effusion 04/08/2023 Syncope 02/06/2023 Hypoglycemia 02/04/2023 TIA (transient ischemic attack) 08/29/2022 Diabetic retinopathy of both eyes associated with type 2 diabetes mellitus 01/17/2021 Diabetic polyneuropathy asso ciated with type 2 [...] as of this encounter (statuses as of 04/16/2023) Resolved Problems Problem Noted Date Diagnosed Date Resolved Date Diabetic retinopathy of both eyes 01/15/2019 06/22/2019 Benign hypertension with chr onic kidney disease, stage III 03/23/2018 02/02/2019 DM type 2 causing eye disease 11/23/2015 07/07/2017 HTN, goal below 150/90 01/10/201504/24 KIDNEY DISEASE, CHRONIC, STA GE III (GFR 30-59 ML/MIN) 09/23/2011 06/18/2018 Overview: Per CKD protocol #1 Diabetic polyneuropathy 09/12/201009/2017 Overview: ICD-10 update of inactive term Chronic [...] as of this encounter (statuses as of 04/16/2023) Immunizations Name Administration Dates Next Due COVID-19, [...] 3 Q uit: 11/28/1964 Smokeless Tobacco: Former Alcohol Use Standard Drinks/Week Comments No 0 [...] on file documented as of this encounter Functional Status Functional Status Response [...] (15 years old or older) No 08/30/19 23 Cognitive Status Response Date of Assessm ent Because of a physical, menta l, or emotional condition, do you have serious difficulty concentrating, remembering, or making decisions? (5 years old or older) No 08/29/2022 documented as of this encounter Miscellaneous Notes * Telephone Encounter - Azul Crocker OSA - 04/16/2023 10:10 AM EST 1st attempt: LM asking pt to call to schedule appt. * Telephone Encounter - Mukesh Staley CMA - 04/15/2023 9:50 AM EST Please assist with appointment * Telephone Encounter - Farhat Torres Jr., DO - 04/15/2023 9:43 AM EST Ok to set up appointment for evaluation of this, non-emergent if not having other problems or symptoms. Next available opening, any provider ok, etc. * Telephone Encounter - Mukesh Staley CMA - 04/15/2023 9:41 AM EST Spoke with granddaughter and it has been going on for 4-5 days. States the patient is saying he is hearing full songs and it is a constant thing. Patient does not have a radio or anything on when he hears this either. Other than that he states he is doing good. * Telephone Encounter - Farhat Torres Jr., DO - 04/15/2023 8:09 AM EST Hard to say. How long has this been going on? Is it actually words and songs, or hearing melodies, tones, etc. Can be from dementia vs. Delirium vs. Hearing loss vs. Mental health issues vs. Other. Is he feeling ok otherwise. Any other issues? Please inquire. * Telephone Encounter - Jake Perry OSA - 04/14/2023 6:18 PM EST Patient granddaughter has called in stating grandfather is hearing singing ff in the distance and is unsure if it is serious or she should worry. documented in this encounter Plan of Treatment Upcoming Encounters Date Type Department Care Team (Late st Contact Info) Description 07/17/2023 2:00 PM EDT Office Visit Cardiology [address] [address] Radha London CRNP [address] [place] [phone] 09/09/2023 3:00 PM EDT Office Visit Nephrology, [address] [address] Kaushik Landaverde MD [address] [place] [address] 10/03/2023 3:20 PM EDT Office Visit [facility] [address] [place] [phone] Farhat Torres Jr., DO [address] [place] [phone] 11/19/2023 1:30 PM EDT Office Visit Cardiology [place] [address] [address] [facility] [phone] 11/19/2023 3:00 PM EDT Office Visit Pharmacy, [address] [place] [address] Pharmacist2, [facility] [place] [address] [place] [address] 03/02/2024 2:00 PM EDT Appointment Radiology, [facility] 400 [facility] [place] [address] 03/08/2024 1:40 PM EST Telemedicine Pulmonary Medicine [facility] [address] [place] [phone] Nakul Michelle MD [address] [facility] [place] [address] Health Maintenance Due Date Last Done Comments Hepatitis B (1 of 3 - Risk 3-dose series) 2000 HOME BP CUFF VALIDATION YEARLY 07/16/2018 07/16/2017 COVID-19 Vaccine ( season) 2023 05/16/2021 Albumin/Creatinine Ratio 03/21/2023 022, 09/18/2021, 02/02/2019, Additional history exists Diabetic Foot Exam 03/26/2023 03/26/2022, 1 , 02/07/2020, Additional history exists HbA1c 07/23/2023 01/22/2023, 08/0 08/2022, 09/20/2022, Additional history exists CKD PHOS USE SMARTSET 50007 08/31/2023 04/2 12/2022, 08/29/2022, 09/18/2021, Additional history exists Depression Screening 10/02/2023 10/01/2022 GFR 10/14/2023 04/14/2023, 12/0 11/2022, 02/04/2023, Additional history exists Diabetic Eye Exam 12/10/2023 12/09/2022, , 11/21/2022, Additional history exists TSH 01/23/2024 01/22/2023, 08/0 08/2022, 09/20/2022, Additional history exists CKD HGB USE SMARTSET 26939 04/10/202404/10, 02/04/2023, 01/22/2023, Additional history exists DTaP,Tdap,and [...] Not on filedocumented as of this encounter Advance Directives Latest Code Status on File Code Status Date Activated Date Inactivated Comments Full Code 08/29/2022 9:50 PM 08/30/2022 8:44 PM This order reflects the patients wishes and were consensually agreed upon. Question Answer Comments Discussion of Advance Directives occurred with: Patient Care Teams Career Development Associate Relationship Specialty Start Date End Date Farhat Torres Jr., DO [address] [place] [phone] PCP - General Family Medicine 04/24/21 documented as of this encounter
--- OUTSIDE RECORDS SUMMARY | 2023-04-21 07:52 | External Medical Summary | Summary of Care ---
Author Name Unknown Organization [facility] Address [address] [place] [address] Phone [phone] Care Team Providers Care Superintendent Overhead Distribution Name Role Phone Brian England DO, David Vincent Primary Care Provid er Reason for Visit * Reason Onset Date Comments Advice 04/14/2023 Encounter Details Date Type Department Care Team (Late st Contact Info) Description 04/14/2023 Telephone [facility] [address] [place] [address] Farhat Torres Jr., DO [address] [place] [address] Advice Allergies Active Allergy [...] UNIT Oral Capsule Delayed Release Particles (Pancrelipase (Fjy-Iyns-Pzdw))Ind ications:Pancreatit is, chronic (HCC) TAKE ONE CAPSULE BY MOUTH THREE TIMES DAILY WITH MEALS 270 Cap 1 05/11/2020 Active OneTouch Verio In Vitro Strip (Glucose Blood)Indications:T ype 2 diabetes mellitus with hemoglobin A1c goal of less than 8.0% (HCC) Use to check blood sugar three times daily as needed. E11.9 100 Strip 3 02/19/2021 Active ReliOn Pen [place] 31G X 6 MM (Insulin Pen Needle) [...] 90 Tablet 3 06/03/2022 Active Dexcom G4 [place] Rcv/Share Device Use as directed. 0 Ac [...] hemoglobin A1c goal of less than 8.0% ([facility]) Inject 15 units with breakfast, 5 units [...] encounter Miscellaneous Notes * Telephone Encounter - Miesha Avila OSA - 04/16/2023 10:43 AM EST Pt scheduled 04/18 with [place]. Melony and aware of DTL * Telephone Encounter - Azul Crocker OSA [...] Visit [facility] [address] [place] [address] [place] CRNP [address] [place] [address] 07/17/2023 2:00 PM EDT Office Visit Cardiology [address] [address] Radha London CRNP [address] [place] [phone] 09/09/2023 3:00 PM EDT Office Visit Nephrology, [address] [address] Kaushik Landaverde MD [address] [place], [place] [address] [place] [address] 10/03/2023 3:20 PM EDT Office Visit [facility] [address] [place] [address] Farhat Torres Jr., DO [address] [place] [address] 11/19/2023 1:30 PM EDT Office Visit Cardiology [facility] [address] [place] [address] Radha London CRNP 400 [place] [phone] 11/19/2023 3:00 PM EDT Office Visit Pharmacy, [address] [place] [address] Pharmacist2, [facility] 21 [facility] [place] [address] 03/02/2024 2:00 PM EDT Appointment Radiology, [facility] [address] [facility] [address] 03/08/2024 1:40 PM EST Telemedicine Pulmonary Medicine [facility] [address] [place] [phone] Nakul Michelle MD [address] [place] [address] Health Maintenance Due Date Last Done Comments Hepatitis B (1 of 3 - Risk 3-dose series) 2000 HOME BP CUFF VALIDATION YEARLY 07/16/2018 07/16/2017 COVID-19 Vaccine ( season) 2023 05/16/2021 Albumin/Creatinine Ratio 03/21/2023 022, 09/18/2021, 02/02/2019, Additional history exists Diabetic Foot Exam 03/26/2023 03/26/2022, 1 , 02/07/2020, Additional history exists HbA1c 07/23/2023 01/22/2023, 08/0 08/2022, 09/20/2022, Additional history exists CKD PHOS USE SMARTSET 53082 08/31/2023 04/2 12/2022, 08/29/2022, 09/18/2021, Additional history exists Depression Screening 10/02/2023 10/01/2022 GFR 10/14/2023 04/14/2023, 12/0 11/2022, 02/04/2023, Additional history exists Diabetic Eye Exam 12/10/2023 12/09/2022, , 11/21/2022, Additional history exists TSH 01/23/2024 01/22/2023, 08/0 08/2022, 09/20/2022, Additional history exists CKD HGB USE SMARTSET 64416 04/10/202404/10, 02/04/2023, 01/22/2023, Additional history exists DTaP,Tdap,and [...] Advance Directives occurred with: Patient Care Teams Superintendent Overhead Distribution Relationship Specialty Start Date End Date Brian England, Farhat Gonsalves DO [address] [place] [address] PCP - General Family Medicine 04/24/21 documented as of this encounter
--- OUTSIDE RECORDS SUMMARY | 2023-04-21 07:53 | External Medical Summary | Summary of Care ---
Author Name Unknown Organization [facility] Address [address] [place] [address] Phone [phone] Care Team Providers Care Babbitt Spinner Name Role Phone Brian England DO, David Vincent Primary Care Provid er Reason for Visit * Reason Onset Date Comments Advice 04/14/2023 Encounter Details Date Type Department Care Team (Late st Contact Info) Description 04/14/2023 Telephone [facility] [address] [place] [address] Farhat Torres Jr., DO [address] [place] [address] Advice Allergies Active Allergy Reactions Criticality Noted Date Comments Hydromorphone Hcl Nausea/vomiting,Othe r (Please comment) 06/06/2015 Excessive sweating Ibuprofen 09/07/2007 Nausea, headache Lisinopril 07/05/2005 COUGH documented as of this encounter (statuses as of 04/15/2023) Medications Medication Sig Dispensed Refills Start Date End Date Status ONETOUCH DELICA LANCETS 33G MISC To use with glucometer up to four times a day DX: E11.9 100 Each 11 10/30/2018 Active Creon 6000 UNIT Oral Capsule Delayed Release Particles (Pancrelipase (Lek-Oery-Qdtv))Ind ications:Pancreatit is, chronic (HCC) TAKE ONE CAPSULE BY MOUTH THREE TIMES DAILY WITH MEALS 270 Cap 1 05/11/2020 Active OneTouch Verio In Vitro Strip (Glucose Blood)Indications:T ype 2 diabetes mellitus with hemoglobin A1c goal of less than 8.0% (HCC) Use to check blood sugar three times daily as needed. E11.9 100 Strip 3 02/19/2021 Active ReliOn Pen [place] 31G X 6 MM (Insulin Pen Needle) [...] 90 Tablet 3 06/03/2022 Active Dexcom G4 [place] Rcv/Share Device Use as directed. 0 Ac [...] hemoglobin A1c goal of less than 8.0% ([facility]) Inject 15 units with breakfast, 5 units [...] as of this encounter (statuses as of 04/15/2023) Active Problems Problem Noted Date Diagnosed Date [...] as of this encounter (statuses as of 04/15/2023) Resolved Problems Problem Noted Date Diagnosed Date [...] as of this encounter (statuses as of 04/15/2023) Immunizations Name Administration Dates Next Due COVID-19, [...] encounter Miscellaneous Notes * Telephone Encounter - Mukesh Staley CMA [...] 07/17/2023 2:00 PM EDT Office Visit Cardiology [place] [address] [address] Radha London CRNP [address] [place] [phone] 09/09/2023 3:00 PM EDT Office Visit Nephrology, [address] [address] Kaushik Landaverde MD [address] [place] [address] 10/03/2023 3:20 PM EDT Office Visit [facility] [address] [place] [address] Farhat Torres Jr., DO [address] [place] [address] 11/19/2023 1:30 PM EDT Office Visit Cardiology [place] [address] [place] [address] Radha London CRNP [address] [place] [address] [place] [phone] 11/19/2023 3:00 PM EDT Office [address] [address] Pharmacist2, [facility] [place] 21 [facility] [place] [address] 03/02/2024 2:00 PM EDT Appointment Radiology, [facility] [address] [place] [address] 03/08/2024 1:40 PM EST Telemedicine Pulmonary Medicine [facility] [address] [place] [phone] Nakul Michelle MD [address] [place] [address] Health Maintenance Due Date Last Done Comments Hepatitis B (1 of 3 - Risk 3-dose series) 2000 HOME BP CUFF VALIDATION YEARLY 07/16/2018 07/16/2017 COVID-19 Vaccine ( season) 2023 05/16/2021 Albumin/Creatinine Ratio 03/21/202303/21/ 022, 09/18/2021, 02/02/2019, Additional history exists Diabetic Foot Exam 03/26/2023 03/26/2022, 1 , 02/07/2020, Additional history exists HbA1c 07/23/2023 01/22/2023, 08/0 08/2022, 09/20/2022, Additional history exists CKD PHOS USE SMARTSET 63333 08/31/2023 04/2 12/2022, 08/29/2022, 09/18/2021, Additional history exists Depression Screening 10/02/2023 10/01/2022 GFR 10/10/2023 04/10/2023, 10/0 07/2022, 01/22/2023, Additional history exists Diabetic Eye Exam 12/10/2023 12/09/2022, , 11/21/2022, Additional history exists TSH 01/23/2024 01/22/2023, 08/0 08/2022, 09/20/2022, Additional history exists CKD HGB USE SMARTSET 67798 04/10/202404/10, 02/04/2023, 01/22/2023, Additional history exists DTaP,Tdap,and [...] Advance Directives occurred with: Patient Care Teams Babbitt Spinner Relationship Specialty Start Date End Date Farhat Torres Jr., DO [address] [place] [phone] PCP - General Family Medicine 04/24/21 documented as of this encounter
--- OUTSIDE RECORDS SUMMARY | 2023-04-21 07:53 | External Medical Summary | Summary of Care ---
Author Name Unknown Organization [facility] Address [address] [place] [address] Phone [phone] Care Team Providers Care Filling Operator Name Role Phone Brian England DO, David Vincent Primary Care Provid er Reason for Visit * Reason Onset Date Comments Advice 04/14/2023 Encounter Details Date Type Department Care Team (Late st Contact Info) Description 04/14/2023 Telephone [facility] [address] [place] [address] Farhat Torres Jr., DO [address] [place] [address] Advice Allergies Active Allergy [...] UNIT Oral Capsule Delayed Release Particles (Pancrelipase (Ydn-Uubi-Wydh))Ind ications:Pancreatit is, chronic (HCC) TAKE ONE CAPSULE BY MOUTH THREE TIMES DAILY WITH MEALS 270 Cap 1 05/11/2020 Active OneTouch Verio In Vitro Strip (Glucose Blood)Indications:T ype 2 diabetes mellitus with hemoglobin A1c goal of less than 8.0% (HCC) Use to check blood sugar three times daily as needed. E11.9 100 Strip 3 02/19/2021 Active ReliOn Pen [place] 31G X 6 MM (Insulin Pen Needle) [...] 90 Tablet 3 06/03/2022 Active Dexcom G4 [place] Rcv/Share Device Use as directed. 0 Ac [...] hemoglobin A1c goal of less than 8.0% ([facility]) Inject 15 units with breakfast, 5 units [...] encounter Miscellaneous Notes * Telephone Encounter - Farhat Torres Jr., [...] 07/17/2023 2:00 PM EDT Office Visit Cardiology [place] [address] [place] [address] Radha London CRNP [address] [place] [phone] 09/09/2023 3:00 PM EDT Office Visit Nephrology, [address] [address] Kaushik Landaverde MD [address] [place] [phone] 10/03/2023 3:20 PM EDT Office Visit [facility] [address] [place] [address] Farhat Torres Jr., DO [address] [place] [address] 11/19/2023 1:30 PM EDT Office Visit Cardiology [address] [place] [address] Radha London CRNP [address] [place] [phone] 11/19/2023 3:00 PM EDT Office Visit Pharmacy, [address] [place] [address] Pharmacist2, [address] [place] [address] 03/02/2024 2:00 PM EDT Appointment Radiology, [facility] [address] [place] [address] 03/08/2024 1:40 PM EST Telemedicine Pulmonary Medicine [place] [place] [address] [place] [phone] Nakul Michelle MD [address] [place] [address] [phone] Health Maintenance Due Date Last Done Comments Hepatitis B (1 of 3 - Risk 3-dose series) 2000 HOME BP CUFF VALIDATION YEARLY 07/16/2018 07/16/2017 COVID-19 Vaccine ( season) 2023 05/16/2021 Albumin/Creatinine Ratio 03/21/2023 022, 09/18/2021, 02/02/2019, Additional history exists Diabetic Foot Exam 03/26/2023 03/26/2022, 1 , 02/07/2020, Additional history exists HbA1c 07/23/2023 01/22/2023, 08/0 08/2022, 09/20/2022, Additional history exists CKD PHOS USE SMARTSET 02365 08/31/2023/2 12/2022, 08/29/2022, 09/18/2021, Additional history exists Depression Screening 10/02/2023 10/01/2022 GFR 10/10/2023 04/10/2023, 10/0 07/2022, 01/22/2023, Additional history exists Diabetic Eye Exam 12/10/2023 12/09/2022, , 11/21/2022, Additional history exists TSH 01/23/2024 01/22/2023, 08/0 08/2022, 09/20/2022, Additional history exists CKD HGB USE SMARTSET 66925 04/10/202404/10, 02/04/2023, 01/22/2023, Additional history exists DTaP,Tdap,and [...] Advance Directives occurred with: Patient Care Teams Filling Operator Relationship Specialty Start Date End Date Farhat Torres Jr., DO [address] [place] [phone] PCP - General Family Medicine 04/24/21 documented as of this encounter
--- OUTSIDE RECORDS SUMMARY | 2023-04-21 07:53 | External Medical Summary ---
Author Name Unknown Address Unknown Organization [facility] [address] [place] [id number] Laboratory Report Ordering Provider Test Date Status null,[facility] FORENSIC ARTIST 04/14/2023 17:17 Final Observation Date Value Abnormality Reference (Units ) Status Glucose 04/15/2023 09:40 194 Above high normal 70-11 0 (MG/DL) Final BUN 04/15/2023 09:40 34 Above high normal 6-25 (MG/DL) Final Creatinine 04/15/2023 09:40 2.3 Above high normal 0.7- 1.3 (MG/DL) Final Sodium 04/15/2023 09:40 143 135-145 (MEQ/ L) Final Potassium 04/15/2023 09:40 4.8 3.5-5.0 (MEQ/ L) Final Cl 04/15/2023 09:40 111 Above high normal 95-10 7 (MEQ/L) Final CO2 04/15/2023 09:40 24 24-31 (MEQ/L) Final Calcium 04/15/2023 09:40 8.3 Below low normal 8.5-10 .6 (MG/DL) Final GFR (estimated) 04/15/2023 09:40 29 Below low normal >60 (ML/MIN/1.73 SQM) Final Performing Location [facility] [address] [place] [address]
--- OUTSIDE RECORDS SUMMARY | 2023-04-21 07:53 | External Medical Summary | Summary of Care ---
Author Name Unknown Organization [facility] Address [address] [place] [address] Phone [phone] Care Team Providers Care Non Destructive Testing Technician Name Role Phone Brian England DO, David Vincent Primary Care Provid er Reason for Visit * Reason Onset Date Comments Advice 04/14/2023 Encounter Details Date Type Department Care Team (Late st Contact Info) Description 04/14/2023 Telephone [facility] [address] [place] [address] Farhat Torres Jr., DO [address] [place] [address] Advice Allergies Active Allergy [...] UNIT Oral Capsule Delayed Release Particles (Pancrelipase (Orb-Tewm-Koly))Ind ications:Pancreatit is, chronic (HCC) TAKE ONE CAPSULE BY MOUTH THREE TIMES DAILY WITH MEALS 270 Cap 1 05/11/2020 Active OneTouch Verio In Vitro Strip (Glucose Blood)Indications:T ype 2 diabetes mellitus with hemoglobin A1c goal of less than 8.0% (HCC) Use to check blood sugar three times daily as needed. E11.9 100 Strip 3 02/19/2021 Active ReliOn Pen [place] 31G X 6 MM (Insulin Pen Needle) [...] 90 Tablet 3 06/03/2022 Active Dexcom G4 [place] Rcv/Share Device Use as directed. 0 Ac [...] hemoglobin A1c goal of less than 8.0% ([facility]) Inject 15 units with breakfast, 5 units [...] 07/17/2023 2:00 PM EDT Office Visit Cardiology [place] [address] [address] Radha London CRNP [address] [place] [phone] 09/09/2023 3:00 PM EDT Office Visit Nephrology, [address] [address] Kaushik Landaverde MD [address] [place] [address] 10/03/2023 3:20 PM EDT Office Visit [facility] [address] [place] [address] Farhat Torres Jr., DO [address] [place] [address] 11/19/2023 1:30 PM EDT Office Visit Cardiology [place] [address] [place] [address] Radha London CRNP [address] [place] [address] [place] [phone] 11/19/2023 3:00 PM EDT Office [address] [address] Pharmacist2, [facility] [place] [address] [facility] [place] [address] 03/02/2024 2:00 PM EDT Appointment Radiology, [facility] [address] [place] [address] 03/08/2024 1:40 PM EST Telemedicine Pulmonary Medicine [facility] [place] [address] [place] [phone] Nakul Michelle MD [address] [place] [address] Health Maintenance Due Date Last Done Comments Hepatitis B (1 of 3 - Risk 3-dose series) 2000 HOME BP CUFF VALIDATION YEARLY 07/16/2018 07/16/2017 COVID-19 Vaccine ( season) 2023 05/16/2021 Albumin/Creatinine Ratio 03/21/202303/21/ 022, 09/18/2021, 02/02/2019, Additional history exists Diabetic Foot Exam 03/26/2023 03/26/2022, 1 , 02/07/2020, Additional history exists HbA1c 07/23/2023 01/22/2023, 08/0 08/2022, 09/20/2022, Additional history exists CKD PHOS USE SMARTSET 25435 08/31/2023 04/2 12/2022, 08/29/2022, 09/18/2021, Additional history exists Depression Screening 10/02/2023 10/01/2022 GFR 10/10/2023 04/10/2023, 10/0 07/2022, 01/22/2023, Additional history exists Diabetic Eye Exam 12/10/2023 12/09/2022, , 11/21/2022, Additional history exists TSH 01/23/2024 01/22/2023, 08/0 08/2022, 09/20/2022, Additional history exists CKD HGB USE SMARTSET 63432 04/10/202404/10, 02/04/2023, 01/22/2023, Additional history exists DTaP,Tdap,and [...] Advance Directives occurred with: Patient Care Teams Non Destructive Testing Technician Relationship Specialty Start Date End Date Farhat Torres Jr., DO [address] [place] [phone] PCP - General Family Medicine 04/24/21 documented as of this encounter
--- OUTSIDE RECORDS SUMMARY | 2023-04-21 07:53 | External Medical Summary | Summary of Care ---
Author Name Unknown Organization [facility] Address [address] [place] [address] Phone [phone] Care Team Providers Care Sales And Marketing Engineer Name Role Phone Brian England DO, David Vincent Primary Care Provid er Reason for Referral * Precert (Within 10 days (routine)) - Authorized Specialty Diagnoses / Procedures Referred By Contac t Referred To Contact Cardiac Studies Diagnoses NSVT (nonsustained ventricular tachycardia) (HCC) PAT (paroxysmal atrial tachycardia) PVC (premature ventricular contraction) DCM (dilated cardiomyopathy) (HCC) HTN, goal below 130/80 Procedures ECHO, COMPLETE (2D), TRANS-THORACIC Lyla Louis DO [address] [place] [address] Referral ID Status Reason Start Date Expiration Date V isits Requested Visits Authorized [id number] Authorized Precert 04/10/2023 999 999 Reason for Visit * Precert (Within 10 days (routine)) - Authorized Specialty Diagnoses / Procedures Referred By Contac t Referred To Contact Cardiac Studies Diagnoses NSVT (nonsustained ventricular tachycardia) (HCC) PAT (paroxysmal atrial tachycardia) PVC (premature ventricular contraction) DCM (dilated cardiomyopathy) (HCC) HTN, goal below 130/80 Procedures ECHO, COMPLETE (2D), TRANS-THORACIC Lyla Louis DO [address] [place] [address] Referral ID Status Reason Start Date Expiration Date V isits Requested Visits Authorized [id number] Authorized Precert 04/10/[phone] Encounter Details Date Type Department Care Team (Latest Contact Info) Description 04/10/2023 1:46 PM EST - 04/10/2023 11:59 PM EST Hospital Encounter Cardiac Studies, [facility] [address] [place] [address] Discharge Disposition: Home - Self Care Allergies Active Allergy Reactions Criticality Noted Date Comments Hydromorphone Hcl Nausea/vomiting,Othe r (Please comment) 06/06/2015 Excessive sweating Ibuprofen 09/07/2007 Nausea, headache Lisinopril 07/05/2005 COUGH documented as of this encounter (statuses as of 04/11/2023) Medications Medication Sig Dispensed Refills Start Date End Date Status ONETOUCH DELICA LANCETS 33G MISC To use with glucometer up to four times a day DX: E11.9 100 Each 11 10/30/2018 Active Creon 6000 UNIT Oral Capsule Delayed Release Particles (Pancrelipase (Lov-Gzkh-Ohwo))Ind ications:Pancreatit is, chronic (HCC) TAKE ONE CAPSULE BY MOUTH THREE TIMES DAILY WITH MEALS 270 Cap 1 05/11/2020 Active OneTouch Verio In Vitro Strip (Glucose Blood)Indications:T ype 2 diabetes mellitus with hemoglobin A1c goal of less than 8.0% (HCC) Use to check blood sugar three times daily as needed. E11.9 100 Strip 3 02/19/2021 Active ReliOn Pen [place] 31G X 6 MM (Insulin Pen Needle) [...] 90 Tablet 3 06/03/2022 Active Dexcom G4 [place] Rcv/Share Device Use as directed. 0 Ac [...] as of this encounter (statuses as of 04/11/2023) Active Problems Problem Noted Date Diagnosed Date [...] as of this encounter (statuses as of 04/11/2023) Resolved Problems Problem Noted Date Diagnosed Date [...] as of this encounter (statuses as of 04/11/2023) Immunizations Name Administration Dates Next Due COVID-19, mRNA, LNP-s, PF, B ooster, 100mcg/0.5mg (Moderna) 05/16/2021 Pneumococcal Conjugate Vacc, 13 Valent (Prevnar) 05/22/2015 SEASONAL INFLUENZA, PF, 6 M & Above, IM , (FLULAVAL or FLUZONE) 02/07/2020,02/02/2019,03/16/2018,2016 Seasonal Influenza, Quadriva lent Hd (Fluzone [...] No 08/29/2022 documented as of this encounter Plan of Treatment Upcoming Encounters Date Type Department Care Team (Late st Contact Info) Description 07/17/2023 2:00 PM EDT Office Visit Cardiology [place] [address] [place] [address] [place] [address] Rad[facility] CRNP [address] [facility] [phone] 09/09/2023 3:00 PM EDT Office Visit Nephrology, [address] [place] [address] Kaushik Landaverde MD [address] [place] [address] 10/03/2023 3:20 PM EDT Office Visit Family [facility] [address] [place] [address] Farhat Torres Jr., DO [address] [place] [address] 11/19/2023 1:30 PM EDT Office Visit Cardiology [facility] [address] [place] [address] Radha London CRNP [address] [place] [phone] 11/19/2023 3:00 PM EDT Office Visit Pharmacy, [address] [address] Pharmacist2, [facility] [address] [place] [address] 03/02/2024 2:00 PM EDT Appointment Radiology, [facility] [address] [place] [address] 03/08/2024 1:40 PM EST Telemedicine Pulmonary Medicine [facility] [address] [place] [phone] Nakul Michelle MD [address] [place] [address] Health Maintenance Due Date Last Done Comments Hepatitis B (1 of 3 - Risk 3-dose series) 2000 HOME BP CUFF VALIDATION YEARLY 07/16/2018 07/16/2017 COVID-19 Vaccine ( season) 2023 05/16/2021 Albumin/Creatinine Ratio 03/21/2023 022, 09/18/2021, 02/02/2019, Additional history exists Diabetic Foot Exam 03/26/2023 03/26/2022, 1 , 02/07/2020, Additional history exists HbA1c 07/23/2023 01/22/2023, 08/0 08/2022, 09/20/2022, Additional history exists CKD PHOS USE SMARTSET 24046 08/31/2023 04/2 12/2022, 08/29/2022, 09/18/2021, Additional history exists Depression Screening 10/02/2023 10/01/2022 GFR 10/10/2023 04/10/2023, 10/0 07/2022, 01/22/2023, Additional history exists Diabetic Eye Exam 12/10/2023 12/09/2022, , 11/21/2022, Additional history exists TSH 01/23/2024 01/22/2023, 08/0 08/2022, 09/20/2022, Additional history exists CKD HGB USE SMARTSET 18768 04/10/202404/10, 02/04/2023, 01/22/2023, Additional history exists DTaP,Tdap,and [...] Not on filedocumented as of this encounter Procedures Procedure Name Priority Date/Time Associated Diagnosis Comments ECHO, COMPLETE (2D), TRANS-THORACIC Routine 04/10/2023 2:18 PM EST NSVT (nonsustained ventricular tachycardia) (HCC) PAT (paroxysmal atrial tachycardia) PVC (premature ventricular contraction) DCM (dilated cardiomyopathy) (HCC) HTN, goal below 130/80 documented in this encounter Results * ECHO, COMPLETE (2D), TRANS-THORACIC (04/10/2023 2:18 PM EST) LEFT VENTRICULAR EJECTION FRACTION 35 % [facility] 04/10/2023 1:52 PM EST Lyla Louis DO ECHOCARDIOLOGY [facility] documented in this encounter Visit Diagnoses Diagnosis NSVT (nonsustained ventricular tachycardia) (HCC) Paroxysmal ventricular tachycardia PAT (paroxysmal atrial tachycardia) Paroxysmal supraventricular tachycardia PVC (premature ventricular contraction) Other premature beats DCM (dilated cardiomyopathy) (HCC) Other primary cardiomyopathies HTN, goal below 130/80 Unspecified essential hypertension documented in this encounter Advance Directives Latest Code Status on File Code Status Date Activated Date Inactivated Comments Full Code 08/29/2022 9:50 PM 08/30/2022 8:44 PM This order reflects the patients wishes and were consensually agreed upon. Question Answer Comments Discussion of Advance Directives occurred with: Patient Care Teams Sales And Marketing Engineer Relationship Specialty Start Date End Date Farhat Torres Jr., DO [address] [place] [address] PCP - General Family Medicine 04/24/21 documented as of this encounter
--- NOTE | 2023-04-21 07:59 | Pre Anesthesia Assessment ---
Date of Service April 21, 2023 Pre Sedation Assessment Cardiovascular + regular rate Respiratory + respiratory effort normal Pre-Sedation Airway Assessment Smoking Status: Former smoker Hx Sleep Apnea: No Hx Difficult Intubation: No Short, Thick Neck: No Oral Cavity: + Dental Abnormalities Mallampati Class: III ASA: ASA3 Procedure Planning Contraindications for Sedation: none Current Medications Reviewed: Yes Notes The planned sedation has been discussed with the patient. Informed Consent was obtained. I have identified the patient, determined the appropriateness of sedation and have assessed the patient immediately prior to the procedure. All medicine(s) and interventions are by my order.
--- NOTE | 2023-04-21 07:59 | History & Physical Bridge Note ---
Date of Service April 21, 2023 History & Physical Bridge Note I have examined the patient, reviewed the History & Physical and in the interval since the performance of the History & Physical I have noted the following changes of clinical significance: no changes noted
[2023-04-21] MEDS ORDERED: niCARdipine HCL INJ 2.5 MG/ML 10 ML AMP ONE (10:30)
[2023-04-21] MEDS ORDERED: HEPARIN (PORCINE) 1000 UNIT/ML 10 ML (CATH LAB USE ONLY) ONE (10:30)
[2023-04-21] MEDS ORDERED: fentaNYL citrate PF 100 MCG/2 ML VIAL ONE (10:31)
[2023-04-21] MEDS ORDERED: NITROGLYCERIN/D5W 100MCG/ML 20ML SYR ONE (10:31)
[2023-04-21] MEDS ORDERED: MIDAZOLAM HCL 1 MG/ML 2ML VIAL ONE (10:31)
--- NOTE | 2023-04-21 10:31 | History & Physical Report ---
Date of Service April 21, 2023 Assessment & Plan (1) CAD (coronary artery disease): Plan: Proceed with planned PCI of LAD History of Present Illness Primary Care Provider: Farhat Torres DO Mr. Lee is an 82-year-old man with a history of recently diagnosed coronary artery disease here for scheduled PCI. Other medical issues include cardiomyopathy with EF 35 to 40%, type 2 diabetes, stage III-IV CKD, hypertension/dyslipidemia, prior TIA and history of tobacco abuse. He is followed by Dr. Louis for recent presyncope. Had a implantable loop monitor showing both SVT and NSVT. Underwent cardiac catheterization 04/11/2023 which showed severe LAD disease involving bifurcation with large D1. In the setting of CKD decision to stage PCI. Since last seen no changes to health. Allergies Allergy/AdvReac Type Severity Reaction Status Date / Time hydromorphone [From Dilaudid] AdvReac Nausea Verified 04/11/23 09:17 ibuprofen AdvReac Nausea Verified 04/11/23 09:17 lisinopril AdvReac Cough Verified 04/11/23 09:17 Home Medications Medication Instructions Recorded Confirmed Type albuterol sulfate 90 mcg/actuation 2 puff inhalation 6XD PRN Dyspnea 04/11/23 04/21/23 History aerosol inhaler (Ventolin HFA) allopurinol 100 mg tablet 200 mg PO DAILY 04/11/23 04/21/23 History benzonatate 100 mg capsule 100 mg PO TID PRN Cough 04/11/23 04/21/23 History clopidogrel 75 mg tablet 75 mg PO DAILY 04/11/23 04/21/23 History famotidine 10 mg tablet 10 mg PO HS 04/11/23 04/21/23 History finasteride 5 mg tablet 5 mg PO DAILY 04/11/23 04/21/23 History gabapentin 100 mg capsule 100 mg PO TID PRN Pain 04/11/23 04/21/23 History insulin aspart U-100 100 unit/mL 15 unit subcut BID 04/11/23 04/21/23 History (3 mL) subcutaneous pen (Novolog FlexPen U-100 Insulin aspart) insulin glargine 100 unit/mL (3 4 unit subcut HS 04/11/23 04/21/23 History mL) subcutaneous pen (Basaglar KwikPen U-100 Insulin) levothyroxine 50 mcg tablet 50 mcg PO DAILY 04/11/23 04/21/23 History yrpmml-eeyqjatf-psupmgu 1 cap PO TID 04/11/23 04/21/23 History 6,000-19,000-30,000 unit capsule,delayed rel (Creon) losartan 25 mg tablet 25 mg PO DAILY 04/11/23 04/21/23 History multivitamin 1 tab PO DAILY 04/11/23 04/21/23 History pravastatin 40 mg tablet 40 mg PO HS 04/11/23 04/21/23 History sodium bicarbonate 650 mg tablet 650 mg PO BID 04/11/23 04/21/23 History triamcinolone acetonide 0.1 % 1 applic topical BID 04/11/23 04/21/23 History topical cream Past Med/Surg History Social History Smoking Status: Former smoker Tobacco Type: Cigarettes Second Hand Exposure: No; Do You Dip or Chew Tobacco: No; Tobacco Cessation Education Requested by Patient: No Hx Alcohol Use: No Hx Substance Use: No Preferred Language: Surinamese Communication Ability: Effective Equipment Service Lead Required: No Beliefs That Will Affect Care: None Current Living Situation: Spouse Other Information That Helps Us Care for You: No Feels Safe at Home: Yes Safety Concerns: Feels Safe At This Time Assistive Devices: Cane, Denture - Upper, Denture - Lower, Glasses and Hearing Aid - Bilateral Review of Systems All systems reviewed & are unremarkable except as noted in HPI & below Physical Exam Constitutional: Frail Eyes: no scleral abnormality Respiratory: normal respiratory effort Cardiovascular: Rate/Rhythm: + irregularly irregular Vessels: radial pulses present (2+ left radial pulse) Gastrointestinal (Abdomen): Percussion/Palpation: abdomen soft; abdomen nontender Skin: no rashes, warm and dry Psychiatric: A+Ox3, euthymic affect ASA Classification ASA ASA3 Results & Data Vital Signs (Past 12 Hours) Vital Signs Pulse Resp BP Pulse Ox O2 Del Method 04/21/23 08:14 108 H 14 165/108 H 92 Room Air
[2023-04-21] MEDS ORDERED: METOPROLOL TARTRATE 1 MG/ML VIAL IV ONE (11:45)
[2023-04-21] MEDS ORDERED: ADENOSINE IV SOLN 3 MG/ML 2 ML VIAL IV ONE (11:45)
[2023-04-21] MEDS ORDERED: IODIXANOL (VISIPAQUE) 320 MG/ML 100ML IV ONE (12:05)
[2023-04-21] MEDS ORDERED: CLOPIDOGREL BISULFATE 300 MG TAB ONE (12:09)
[2023-04-21] MEDS ORDERED: FUROSEMIDE 40 MG/4 ML VIAL IV ONE ×2 (17:19→17:22)
[2023-04-21] MEDS ORDERED: ONDANSETRON INJ 2 MG/ML 2 ML VIAL IV PRN (17:21)
[2023-04-21] MEDS ORDERED: NITROGLYCERIN SL 0.4 MG/TAB TAB SL PRN (17:21)
[2023-04-21] MEDS ORDERED: BENZONATATE 100 MG CAPSULE PO PRN (17:24)
[2023-04-21] MEDS ORDERED: ALBUTEROL HFA 8 GM INHALER INH PRN (17:24)
[2023-04-21] MEDS ORDERED: GLUCOSE 40% GEL 15 GM TUBE PO PRN (17:26)
[2023-04-21] MEDS ORDERED: DEXTROSE 50% 50 ML SYRINGE IV PRN (17:26)
[2023-04-21] MEDS ORDERED: GLUCAGON FOR INJ 1 MG VIAL SQ PRN (17:26)
[2023-04-21] MEDS ORDERED: GLUCOSE 10 TAB/TUBE PO PRN (17:26)
[2023-04-21] MEDS ORDERED: PHARMACY GLYCEMIC MGMT CONSULT PRN (17:26)
[2023-04-21] MEDS ORDERED: CARBOHYDRATES FOR HYPOGLYCEMIA PO PRN (17:26)
--- NOTE | 2023-04-21 17:30 | Post Anesthesia Assessment ---
Date of Service April 21, 2023 Post Sedation Assessment Vital Signs Temp Pulse Resp BP Pulse Ox O2 Del Method O2 Flow Rate 04/21/23 17:25 98.1 F 102 H 22 137/101 H 97 Nasal Cannula 2 04/21/23 16:45 98.1 F 95 H 18 158/99 H 92 Room Air 04/21/23 16:30 98.1 F 101 H 18 159/104 H 92 Room Air 04/21/23 16:15 98.1 F 99 H 18 167/105 H 91 Room Air 04/21/23 16:00 98.1 F 95 H 18 162/109 H 91 Room Air 04/21/23 15:45 98.1 F 98 H 18 162/104 H 91 Room Air 04/21/23 15:34 96 H 18 93 Room Air 04/21/23 15:15 98.1 F 95 H 18 157/110 H 92 Room Air 04/21/23 15:00 98.1 F 94 H 18 133/101 H 92 Room Air 04/21/23 14:45 98.1 F 96 H 18 155/117 H 93 Room Air 04/21/23 14:30 98.1 F 90 18 127/86 91 Room Air 04/21/23 14:15 98.1 F 93 H 18 163/112 H 91 Room Air 04/21/23 14:00 98.1 F 106 H 18 150/116 H 92 Room Air 04/21/23 13:45 98.1 F 106 H 18 103/71 98 Nasal Cannula 2 04/21/23 13:30 98.1 F 106 H 18 154/102 H 97 Nasal Cannula 2 04/21/23 13:15 98.1 F 108 H 18 155/66 H 95 Nasal Cannula 2 04/21/23 13:00 98.1 F 108 H 18 158/57 H 93 Nasal Cannula 2 04/21/23 12:45 97.9 F 101 H 18 163/101 H 89 L Room Air 04/21/23 12:30 97.9 F 113 H 18 142/81 H 93 Room Air 04/21/23 12:15 97.9 F 107 H 18 153/106 H 93 Room Air 04/21/23 08:14 108 H 14 165/108 H 92 Room Air Recovery Score Activity: Moves 4 extremities Respiration: Deep Breath/Cough Circulation: +/-20% PreAnes Value Consciousness: Fully Awake Oxygen Saturation: > 92% On Room Air Post Anesthesia Score: 10 Discharge Sedation Level of Care: Fast Track Phase II Post Sedation Plan On clinical assessment, the patient appears to have tolerated the sedation without complications. Patient is recovering as anticipated. Patient will continue to be monitored by nursing and may be discharged when sedation discharge criteria are met per below protocol. Upon Completions of procedure up to 15 minutes continue every 5 minute vital signs and the P.A.R. score; then discharge to a Phase I or Fast Track to Phase II per the following guidelines: * Discharge Patient to appropriate Phase II area if PAR is 8 or greater or return to pre- procedure baseline. The post - procedure orders will be as directed. * If PAR score is less than 8 or not return to pre-procedure baseline then patient will follow Phase I monitoring till PAR is reached for Phase II. The Phase I may be done in procedure room or may call to secure a Phase I area. * If naloxone or flumazenil are used for reversal, hold in Phase I for continued monitoring from when last reversal dose was given for a minimum of 60 minutes or longer pending the nurse and/or physician discretion of patient condition before discharge to Phase II. Please call the Sedation Physician to re-evaluate and complete post-note for discharge to Phase II area. Do NOT discharge from procedure sedation or Phase 1 until post- sedation evalua tion note is complete by procedure /sedation MD Sedation Discharge Instructions to be given to the patient at discharge to home.
--- NOTE | 2023-04-21 17:36 | Cardiac Catheterization ---
[facility] Data: Net Coordinator Cardiac Status Clinical evaluation leading to the procedure CAD Presenation: Stable angina Anginal Classification: CCS III Heart Failure: NYHA Class: CCS II Diagnostic Physicians Name: Erik Pyle MD Closure Device Recommendations: PCI without planned CABG Cardiac Cath Procedure Full Procedure Date April 21, 2023 Pre-Procedure Diagnosis Pre-Procedure Diagnosis: CAD AUC Score AUC Score: 7 Post-Procedure Diagnosis Post-Procedure Diagnosis: Severe CAD Procedure(s) Performed Procedure(s) Performed: Coronary Angiography and Drug Eluting Stent Supervisor Agency Appointments Erik Pyle MD Nuclear Control Room Operator(s) Dimitri Estimated Blood Loss Estimated Blood Loss: 15 Medication(s) Medication(s): Clopidogrel, Fentanyl, Heparin, Lidocaine 1%, Nicardipine, Nitroglycerin and Versed Summary of Findings Indication: Staged PCI of severe LAD disease Access: 6 Fr right radial artery Catheters: EBU 3.75 guide Findings: See cath report from 04/11/2023 for full details of patient's coronary angiography. Briefly patient found to have severe sequential 90% lesions in mid LAD with initial stenosis involving bifurcation with large diagonal. Diagonal with severe ostial disease at least 70%. -- PCI -- Antithrombotic therapy: Heparin, clopidogrel Procedure: Left main cannulated with EBU 3.75 guide Pre-procedure flow ZHOU 3 Whisper wire passed across lesion into distal LAD Tawer 50 wire passed into first diagonal Telescope support catheter placed to proximal LAD Mid LAD lesion predilated with 2.0 compliant balloon Ostial diagonal dilated with 2.0 compliant balloon Second stenosis in late mid LAD stented with 2.75 x 18 mm [place] drug-eluting Additional 2.75 x 18 mm [place] drug-eluting stent placed to earlymid LAD extending across takeoff of diagonal Diagonal rewired with a sdv pilot/navigator/dds operator 50 wire Ostium of jailed diagonal dilated with 2.0 and 2.5 balloon LAD stent post-dilated with 3.0 noncompliant balloon IC vasodilators administered for spasm Post procedure ZHUO 3 flow, stent well expanded with minimal residual stenosis. Moderate residual ostial stenosis but ZHOU-3 flow in diagonal. No other apparent cardiac complications. Arterial Closure: TR band Summary: 1. Successful PCI of proximal to mid LAD with 2 overlapping drug-eluting stents (2.75 x 18, 2.75 x 18 [place]; postdilated with 3.0 NC). -PTCA of jailed D1 ostium with 2.5 balloon with moderate residual stenosis but ZHOU-3 flow Recommendations: Reloaded with clopidogrel 300 mg in Net Coordinator Continue dual-antiplatelet therapy for at least 1 year Continue statin, and ASCVD risk factor modification Consult cardiac Rehab Hemodynamics Rest Ao:: 172/87/71 Final Ao: 143/60/101 LV: -- Recommendations Recommendations: PCI without planned CABG Specimens Specimens: None Radiation Exposure (mGy) 3730 Contrast (mls) 90 Anesthesia moderate [id number] Procedural Complication(s) None Disposition Net Coordinator Holding/Recovery I attest to the content of the Intraoperative Record and any orders documented therein. Any exceptions are noted below. [facility] Card Cath Procedure Codes Moderate Sedation Procedure 1: Sedation/Anesthesia: 70642 Mod Sedation by the same physician;Init15 Min Child Age 5 & Up Procedure 2: Sedation/Anesthesia: 93956 Mod Sedation by the same physician; Ea Additio nal15 Minutes Stenting Procedure 1: Cardiovascular Stent Procedures: 96799 Perc transcatheter placement of intracoronary stent(s), with ang PG Care Time/CCT Total # of Minutes Spent Total Time Spent with Patient: Total time spent is greater than 50% in coordination of care (as documented) at patient's floor/unit and/or counseling patient:
[2023-04-21] MEDS: SODIUM BICARBONATE 650 MG TAB PO SCH (20:18)
[2023-04-21] MEDS: INSULIN ASPART PER UNIT CHARGE SC SCH (20:44)
[2023-04-21] MEDS ORDERED: FAMOTIDINE 10 MG TABLET PO SCH (21:00)
[2023-04-21] MEDS ORDERED: PRAVASTATIN SOD 40 MG TAB PO SCH (21:00)
[2023-04-21] MEDS ORDERED: LANTUS PER UNIT CHARGE SQ SCH (21:00)
[2023-04-22] MEDS ORDERED: LEVOTHYROXINE SODIUM 50 MCG TABLET PO SCH (06:30)
[2023-04-22 08:09] LABS: Basophils # (auto) 0.03 K/uL (0.00-0.20); Basophils % (auto) 0.4 %; Eosinophils # (auto) 0.11 K/uL (0.00-0.50); Eosinophils % (auto) 1.4 %; Hematocrit (blood only) 30.5 % (42.0-52.0); Hemoglobin 10.8 g/dl (14.0-18.0); Immature Granulocytes # (auto) 0.03 K/uL (0.01-0.20); Immature Granulocytes % (auto) 0.4 %; Lymphocytes # (auto) 1.46 K/uL (1.20-3.40); Lymphocytes % (auto) 17.9 %; Mean Corpuscular Hemoglobin 34.3 pg (25.0-34.0); Mean Corpuscular Hgb Conc 35.4 g/dL (32.0-36.0); Mean Corpuscular Volume 96.8 fL (80.0-100.0); Mean Platelet Volume 10.8 fL (9.4-12.4); Monocytes # (auto) 0.71 K/uL (0.11-0.59); Monocytes % (auto) 8.7 %; Neutrophils % (auto) 71.2 %; Platelet Count 171 K/uL (130-400); RDW Coefficient of Variation 13.1 % (11.5-14.5); RDW Standard Deviation 46.5 fL (36.4-46.3); Red Blood Count 3.15 M/uL (4.70-6.10); White Blood Count 8.14 K/ul (4.8-10.8)
[2023-04-22] MEDS: INSULIN ASPART PER UNIT CHARGE SC SCH ×3 (08:13→17:15)
[2023-04-22 08:29] LABS: BUN Creatinine Ratio 16.8 (10-20); Calcium 8.4 mg/dl (8.6-10.3); Creatinine Clr Calc Pharmacy 28.2 ml/min; Est GFR (African American) 34.6 ml/min; Est GFR (Non-African American) 29.8 ml/min; Potassium 5.1 mmol/L (3.5-5.1)
[2023-04-22] MEDS: SODIUM BICARBONATE 650 MG TAB PO SCH (08:33)
[2023-04-22] MEDS ORDERED: FINASTERIDE 5 MG TAB PO SCH (09:00)
[2023-04-22] MEDS ORDERED: allopurinoL 100 MG TAB PO SCH (09:00)
[2023-04-22] MEDS ORDERED: CLOPIDOGREL BISULFATE 75 MG TAB PO SCH (09:00)
[2023-04-22] MEDS ORDERED: FUROSEMIDE 40 MG/4 ML VIAL IV ONE (12:22)
[2023-04-22] MEDS ORDERED: METOPROLOL SUCC 25MG EXT REL TAB PO SCH (12:30)
--- NOTE | 2023-04-22 13:23 | Pharmacy Report ---
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 Pharmacy consulted for glycemic management. Resumed patient's home basal dosing last evening. BSGs stable today, continue same parameters PLAN FOR INPATIENT GLYCEMIC CONTROL: * Hold outpatient oral diabetes medications * Basal insulin * Lantus 4 units hs * Bolus insulin * NovoLog per scale ACHS or Q6hrs while NPO * Goal Range: Low 100 mg/dL - High 150 mg/dL * Correction Factor: 40 mg/dL/unit * Nutritional / Prandial insulin per carb ratio of 1 unit per 20 grams CHO consumed
--- OUTSIDE RECORDS SUMMARY | 2023-04-22 18:21 | External Medical Summary ---
Author Name Unknown Address Unknown Organization [id number]:[facility] [place] - [address] [place] [id number] Laboratory Report Ordering Provider Test Date Status MICHAEL WEBB 02/19/2023 13:21:03 Final Observation Date Value Abnormality Reference (Units ) Status Bacteria identified in Specimen by Culture 02/19/2023 13:21:03 No acid fast bacilli isolated Final Microscopic observation [Identifier] in Specimen by Rhodamine-auramine fluorochrome stain 02/19/2023 13:21:03 No acid fast bacilli seen Final Test: Culture, AFB
Spec imen Source: Pleural fluid, Right
Specimen Type: Body Fluid
Specimen Date: 02/19/2023 1:21 PM
Result Date: 04/22/2023 7:46 AM
Result Status: Final result
Resulting Lab: [facility] [place]
[address]
[place] [id number]

CULTURE

No acid fast bacilli isolated

STAIN

No acid fast bacilli seen

null Performing Location LAB[facility]ATORY [facility] [place] - [address] [place] [address]
--- NOTE | 2023-04-23 08:46 | Discharge Summary ---
Date of Service April 23, 2023 Admission HPI Per Admitting Provider Mr. Lee is an 82-year-old man with a history of recently diagnosed coronary artery disease here for scheduled PCI. Other medical issues include cardiomyopathy with EF 35 to 40%, type 2 diabetes, stage III-IV CKD, hypertension/dyslipidemia, prior TIA and history of tobacco abuse. He is followed by Dr. Louis for recent presyncope. Had a implantable loop monitor showing both SVT and NSVT. Underwent cardiac catheterization 04/11/2023 which showed severe LAD disease involving bifurcation with large D1. In the setting of CKD decision to stage PCI. Since last seen no changes to health. Discharge Data Procedures Performed Operation Date: 04/21/23 11:00 Actual Procedures s Cineradiography w/Routine Exam - Erik Pyle MD p Drug Eluting Stent SGl Vessel - Erik Pyle MD p Cath, Coronaries ONLY (no LV) - Erik Pyle MD Hospital Course (1) CAD (coronary artery disease): Plan Patient underwent successful PCI of proximal to mid LAD with 2 overlapping drug- eluting stents (2.75 x 18, 2.75 x 18 Tomas postdilated with 3.0 NC) with PTCA of jailed D1 ostium with 2.5 balloon. Post procedure patient endorsed mild shortness of breath/cough and had pulmonary congestion on exam. Was admitted for postprocedural observation and gentle diuresis. Received a total of 2 doses of IV Lasix with appropriate urinary response. Following diuresis dyspnea improved. Post procedure creatinine stab le (2.0). Had brief episodes of asymptomatic SVT on telemetry but no other significant arrhythmia. Discharged hospital day 2 with no chest pain or access site complications. Discharged home on DAPT with aspirin, clopidogrel. Started on Toprol-XL 25 mg daily and PRN Lasix 40 mg daily for weight gain/dyspnea. He will follow-up with Dr. Louis/[facility] cardiology in next 1-2 weeks with follow-up labs (hemoglobin down to 10.8 post procedure). Discharge Instructions Home Medications albuterol sulfate 90 mcg/actuation aerosol inhaler (Ventolin HFA) 2 puff inhalation 6XD PRN Dyspnea 04/11/23 [History Confirmed 04/21/23] allopurinol 100 mg tablet 200 mg PO DAILY 04/11/23 [History Confirmed 04/21/23] benzonatate 100 mg capsule 100 mg PO TID PRN Cough 04/11/23 [History Confirmed 04/21/23] clopidogrel 75 mg tablet 75 mg PO DAILY 04/11/23 [History Confirmed 04/21/23] famotidine 10 mg tablet 10 mg PO HS 04/11/23 [History Confirmed 04/21/23] finasteride 5 mg tablet 5 mg PO DAILY 04/11/23 [History Confirmed 04/21/23] gabapentin 100 mg capsule 100 mg PO TID PRN Pain 04/11/23 [History Confirmed 04/21/23] insulin aspart U-100 100 unit/mL (3 mL) subcutaneous pen (Novolog FlexPen U-100 Insulin aspart) 15 unit subcut BID 04/11/23 [History Confirmed 04/21/23] insulin glargine 100 unit/mL (3 mL) subcutaneous pen (Basaglar KwikPen U-100 Insulin) 4 unit subcut HS 04/11/23 [History Confirmed 04/21/23] levothyroxine 50 mcg tablet 50 mcg PO DAILY 04/11/23 [History Confirmed 04/21/23] zgzvfx-ciihtbhn-kfhpxyc 6,000-19,000-30,000 unit capsule,delayed rel (Creon) 1 cap PO TID 04/11/23 [History Confirmed 04/21/23] losartan 25 mg tablet 25 mg PO DAILY 04/11/23 [History Confirmed 04/21/23] multivitamin 1 tab PO DAILY 04/11/23 [History Confirmed 04/21/23] pravastatin 40 mg tablet 40 mg PO HS 04/11/23 [History Confirmed 04/21/23] sodium bicarbonate 650 mg tablet 650 mg PO BID 04/11/23 [History Confirmed 04/21/23] triamcinolone acetonide 0.1 % topical cream 1 applic topical BID 04/11/23 [History Confirmed 04/21/23] aspirin 81 mg tablet,delayed release 81 mg PO DAILY #30 tabs 04/22/23 [Rx] furosemide 40 mg tablet 40 mg PO DAILY PRN weight gain #30 tabs 04/22/23 [Rx] metoprolol succinate 25 mg tablet,extended release 24 hr (Toprol XL) 25 mg PO DAILY #30 tabs 04/22/23 [Rx] Coding Level of Care Code 62016 IN/OBS DISCH 30 MIN/LESS Diagnoses CAD (coronary artery disease) I25.10
== END 2023-04-22 18:00 | disposition home or self-care (01) ==
LOC: CC 07:45 → 2S 07:45
PROC: CLB.CCO (2023-04-21 11:00)